=== PATIENT | male | born 1970 | race Caucasian/White ===

== ENCOUNTER 2024-10-14 09:16 | Inpatient (IN) | payer OTHER, SELFPAY ==
[2024-10-14] VITALS (36 sets, daily range): BP systolic 64–150; BP diastolic 46–112; BMI 35.1; BMI 33.9
--- NOTE | 2024-10-14 07:23 | ED.GENMED ---
History of Present Illness
<Danae Morillo PA-C - Last Filed: 10/14/24 09:15>
General
Chief Complaint: Cardiac Symptoms
Source: patient
Time Seen by Provider: 10/14/24 07:23
History of Present Illness
History of Present Illness:
54yoM with a history of atrial fibrillation on Pradaxa, hypertension, hyperlipidemia, and CHF presenting for evaluation of palpitations. Patient woke up this morning around 6:15am and noticed that his heart was racing and he felt short of breath.
He checked his heart rate which was elevated in the 170s. He reports lightheadedness but denies any syncope. He had chest pain earlier but denies any chest pain currently. He also noticed that his ankles were swollen this morning. Of note,
patient has been feeling 'off' and 'not himself' for the past 4 to 5 days. He believes that he may have been in A-fib at that time but his cardiac symptoms did not start until this morning. Patient was admitted in 2021 for atrial fibrillation with
RVR and CHF exacerbation. He underwent failed cardioversion x2 in the ED at that time. He reports compliance with his medications. His principal consultant is Dr. Medel.
Past History
<Judith Caraballo MD - Last Filed: >
Past History
ED Past Medical History: Arrthythmia (Atrial fib), HTN, Hypercholesterolemia and Other (IBS)
ED Past Surgical History: Other (Left wrist surgery and Right shoulder )
Social History
Tobacco: Former smoker
Alcohol: Occasional
Drug: None
Personal:
Living: with family
Employment: Employed
Family History
Family History: Other (Not much contact with his father history not known)
Phy Exam
<Danae Morillo PA-C - Last Filed: 10/14/24 09:15>
Physical Exam
Physical Exam:
Appears uncomfortable, non-toxic
General Physical Exam
General Presentation: mild distress
General Skin: warm and dry
General Habitus: normal
General Mental: alert
Cardiovascular Exam
Cardiovascular Exam: irregularly irregular, tachycardia and other (2+ pitting edema in bilateral lower extremities)
Pulmonary Exam
Pulmonary Exam: lungs clear, no respiratory distress, no rales, no crackles, no rhonchi and no wheezing
Neurological Exam
Neurological Exam: alert
Jamee Coma Scale
Eye Opening: Spontaneous
Verbal Response: Oriented
Motor Response: Obeys Commands
GCS Total Score: 15
Skin Exam
Skin Exam: normal color and warm/dry
Psychiatric Exam
Psychiatric Exam: normal mood/affect
<Reyes Elizondo DO - Last Filed: 10/14/24 08:30>
Jamee Coma Scale
GCS Total Score: 15
Course
<Danae Morillo PA-C - Last Filed: 10/14/24 09:15>
Orders/Labs/Results
Orders:
Orders
10/14/24 07:15
EKG [Electrocardiogram (*1)] Stat
Reason for Study: Palpitations
10/14/24 07:16
EKG- Treatment ONCE
10/14/24 07:32
Cardiac Monitoring- Treatment ONCE
10/14/24 07:39
Complete Blood Count/With Diff Urgent
Comprehensive Metabolic Panel Urgent
Magnesium Urgent
NT-proBNP Urgent
TSH Reflex To Free T4 Urgent
Troponin I Urgent
10/14/24 07:41
Propofol [Diprivan] 20 ml .ROUTE .STK-MED
10/14/24 08:05
Diltiazem 125 mg/125 ml Nss [Cardizem] 125 mg in 125 ml .ROUTE .STK-MED
10/14/24 08:06
Diltiazem HCl [Cardizem] 25 mg .ROUTE .STK-MED ONE
Diltiazem HCl [Cardizem] 25 mg IV NOW STA
Furosemide [Lasix] 60 mg IV NOW STA
10/14/24 08:15
Diltiazem 125 mg/125 ml Nss [Cardizem] 125 mg in 125 ml IV PER PROTOCOL
Initial dose in mg/hr, then titrate:: 5
Titrate to keep:: Heart rate 80-100 bpm
Titrate by mg/hr:: 5 mg/hr
Frequency of titrations (minutes):: 15
Maximum dose in mg/hr:: 15
10/14/24 08:16
Magnesium Sulfate 2 Gram/50 ml [Magnesium Sulfate] 2 gram in 50 ml IV NOW
Potassium Chloride [KCl] 40 meq PO NOW STA
10/14/24 08:17
CR Chest Portable - 1 View Urgent
Comment:
Reason For Exam: SOB, leg swelling
Reason Study Needs to be Portable: Unable to Transport
10/14/24 08:21
Potassium Chloride [KCl] 20 meq 0.9% Sodium Chloride 250 ml [Nss] 250 ml IV NOW
10/14/24 08:30
CARDIOLOGY CONSULT Routine
Consulting Provider: Joao Buenrostro
Was physician already notified: Yes
10/14/24 09:05
Admit/Transfer Patient As Directed
Co-Sign Provider:
Level of Care: Inpatient admission
Assign to:: IVU
Physician / Group: Roc/hospitalist
Diagnosis: A fib, CHF
Reason for Hospitalization: A fib, CHF
Expected length of stay greater than two midnights?: Yes
ELOS- Estimated Length of Stay in days: 3
I certify the patient meets the requirements for IP care: Yes
PRN Pain Medication Management As Directed
May give lesser potent ordered pain med per pt: Yes
preference::
Protocol:: Medication orders for pain may be administered in a
manner that supports deferring to patient preference
when the pt is:
- Requesting an ordered lesser potent pain medication.
Least to most potent pain medications are defined
as: acetaminophen < NSAID < tramadol < opioids
(morphine, oxycodone, hydromorphone).
- Requesting a lesser dose of the same medication IF
ORDERED.
- Requesting a less intrusive route of administration
if both routes are prescribed by the provider (PO <
IV).
10/14/24 09:06
Code Status As Directed
Resuscitation Status: Full Code
10/14/24 09:09
COVID-19 Antigen Routine
Source: Nasal Swab
Urine Drug Abuse Screen Routine
Influenza A+B Rapid Molecular Routine
ASIF Source: Nasal Swab
Specimen Description:
10/14/24 09:30
Magnesium Sulfate 2 Gram/50 ml [Magnesium Sulfate] 2 gram in 50 ml IV ONCE
Abnormal Lab Results
10/14/24
07:39
RBC 4.53 L 10^6/uL
(4.70-6.10)
MCH 31.8 H pg
(27.0-31.0)
Neutrophils % 38.8 L %
(42.2-75.2)
Potassium 3.1 L mmol/L
(3.5-5.1)
BUN 4 L mg/dl
(9-20)
Magnesium 1.1 L mg/dl
(1.6-2.3)
Total Protein 6.0 L g/dl
(6.3-8.2)
10/14/24 07:39
10/14/24 07:39
Vital Signs
Initial and Last Documented VS:
Initial Vital Signs
Temp Pulse Resp BP Pulse Ox
98.2 F 124 20 120/86 100
10/14/24 07:16 10/14/24 07:16 10/14/24 07:16 10/14/24 07:16 10/14/24 07:16
Last Documented Vital Signs
Temp Pulse Resp BP Pulse Ox
98 F 111 16 113/70 97
10/14/24 08:37 10/14/24 09:00 10/14/24 09:04 10/14/24 09:00 10/14/24 09:00
<Reyes Elizondo DO - Last Filed: 10/14/24 08:30>
Orders/Labs/Results
Orders:
Orders
10/14/24 07:15
EKG [Electrocardiogram (*1)] Stat
Reason for Study: Palpitations
10/14/24 07:16
EKG- Treatment ONCE
10/14/24 07:32
Cardiac Monitoring- Treatment ONCE
10/14/24 07:39
Complete Blood Count/With Diff Urgent
Comprehensive Metabolic Panel Urgent
Magnesium Urgent
NT-proBNP Urgent
TSH Reflex To Free T4 Urgent
Troponin I Urgent
10/14/24 07:41
Propofol [Diprivan] 20 ml .ROUTE .STK-MED
10/14/24 08:05
Diltiazem 125 mg/125 ml Nss [Cardizem] 125 mg in 125 ml .ROUTE .STK-MED
10/14/24 08:06
Diltiazem HCl [Cardizem] 25 mg .ROUTE .STK-MED ONE
Diltiazem HCl [Cardizem] 25 mg IV NOW STA
Furosemide [Lasix] 60 mg IV NOW STA
10/14/24 08:15
Diltiazem 125 mg/125 ml Nss [Cardizem] 125 mg in 125 ml IV PER PROTOCOL
Initial dose in mg/hr, then titrate:: 5
Titrate to keep:: Heart rate 80-100 bpm
Titrate by mg/hr:: 5 mg/hr
Frequency of titrations (minutes):: 15
Maximum dose in mg/hr:: 15
10/14/24 08:16
Magnesium Sulfate 2 Gram/50 ml [Magnesium Sulfate] 2 gram in 50 ml IV NOW
Potassium Chloride [KCl] 40 meq PO NOW STA
10/14/24 08:17
CR Chest Portable - 1 View Urgent
Comment:
Reason For Exam: SOB, leg swelling
Reason Study Needs to be Portable: Unable to Transport
10/14/24 08:21
Potassium Chloride [KCl] 20 meq 0.9% Sodium Chloride 250 ml [Nss] 250 ml IV NOW
10/14/24 08:30
CARDIOLOGY CONSULT Routine
Consulting Provider: Joao Buenrostro
Was physician already notified: Yes
10/14/24 09:05
Admit/Transfer Patient As Directed
Co-Sign Provider:
Level of Care: Inpatient admission
Assign to:: IVU
Physician / Group: Roc/hospitalist
Diagnosis: A fib, CHF
Reason for Hospitalization: A fib, CHF
Expected length of stay greater than two midnights?: Yes
ELOS- Estimated Length of Stay in days: 3
I certify the patient meets the requirements for IP care: Yes
PRN Pain Medication Management As Directed
May give lesser potent ordered pain med per pt: Yes
preference::
Protocol:: Medication orders for pain may be administered in a
manner that supports deferring to patient preference
when the pt is:
- Requesting an ordered lesser potent pain medication.
Least to most potent pain medications are defined
as: acetaminophen < NSAID < tramadol < opioids
(morphine, oxycodone, hydromorphone).
- Requesting a lesser dose of the same medication IF
ORDERED.
- Requesting a less intrusive route of administration
if both routes are prescribed by the provider (PO <
IV).
10/14/24 09:06
Code Status As Directed
Resuscitation Status: Full Code
10/14/24 09:09
COVID-19 Antigen Routine
Source: Nasal Swab
Urine Drug Abuse Screen Routine
Influenza A+B Rapid Molecular Routine
ASIF Source: Nasal Swab
Specimen Description:
10/14/24 09:30
Magnesium Sulfate 2 Gram/50 ml [Magnesium Sulfate] 2 gram in 50 ml IV ONCE
Abnormal Lab Results
10/14/24
07:39
RBC 4.53 L 10^6/uL
(4.70-6.10)
MCH 31.8 H pg
(27.0-31.0)
Neutrophils % 38.8 L %
(42.2-75.2)
Potassium 3.1 L mmol/L
(3.5-5.1)
BUN 4 L mg/dl
(9-20)
Magnesium 1.1 L mg/dl
(1.6-2.3)
Total Protein 6.0 L g/dl
(6.3-8.2)
10/14/24 07:39
10/14/24 07:39
Vital Signs
Initial and Last Documented VS:
Initial Vital Signs
Temp Pulse Resp BP Pulse Ox
98.2 F 124 20 120/86 100
10/14/24 07:16 10/14/24 07:16 10/14/24 07:16 10/14/24 07:16 10/14/24 07:16
Last Documented Vital Signs
Temp Pulse Resp BP Pulse Ox
98 F 111 16 113/70 97
10/14/24 08:37 10/14/24 09:00 10/14/24 09:04 10/14/24 09:00 10/14/24 09:00
<Judith Caraballo MD - Last Filed: >
Orders/Labs/Results
Orders:
Orders
10/14/24 07:15
EKG [Electrocardiogram (*1)] Stat
Reason for Study: Palpitations
10/14/24 07:16
EKG- Treatment ONCE
10/14/24 07:32
Cardiac Monitoring- Treatment ONCE
10/14/24 07:39
Complete Blood Count/With Diff Urgent
Comprehensive Metabolic Panel Urgent
Magnesium Urgent
NT-proBNP Urgent
TSH Reflex To Free T4 Urgent
Troponin I Urgent
10/14/24 07:41
Propofol [Diprivan] 20 ml .ROUTE .STK-MED
10/14/24 08:05
Diltiazem 125 mg/125 ml Nss [Cardizem] 125 mg in 125 ml .ROUTE .STK-MED
10/14/24 08:06
Diltiazem HCl [Cardizem] 25 mg .ROUTE .STK-MED ONE
Diltiazem HCl [Cardizem] 25 mg IV NOW STA
Furosemide [Lasix] 60 mg IV NOW STA
10/14/24 08:15
Diltiazem 125 mg/125 ml Nss [Cardizem] 125 mg in 125 ml IV PER PROTOCOL
Initial dose in mg/hr, then titrate:: 5
Titrate to keep:: Heart rate 80-100 bpm
Titrate by mg/hr:: 5 mg/hr
Frequency of titrations (minutes):: 15
Maximum dose in mg/hr:: 15
10/14/24 08:16
Magnesium Sulfate 2 Gram/50 ml [Magnesium Sulfate] 2 gram in 50 ml IV NOW
Potassium Chloride [KCl] 40 meq PO NOW STA
10/14/24 08:17
CR Chest Portable - 1 View Urgent
Comment:
Reason For Exam: SOB, leg swelling
Reason Study Needs to be Portable: Unable to Transport
10/14/24 08:21
Potassium Chloride [KCl] 20 meq 0.9% Sodium Chloride 250 ml [Nss] 250 ml IV NOW
10/14/24 08:30
CARDIOLOGY CONSULT Routine
Consulting Provider: Joao Buenrostro
Was physician already notified: Yes
10/14/24 09:05
Admit/Transfer Patient As Directed
Co-Sign Provider:
Level of Care: Inpatient admission
Assign to:: IVU
Physician / Group: Roc/hospitalist
Diagnosis: A fib, CHF
Reason for Hospitalization: A fib, CHF
Expected length of stay greater than two midnights?: Yes
ELOS- Estimated Length of Stay in days: 3
I certify the patient meets the requirements for IP care: Yes
PRN Pain Medication Management As Directed
May give lesser potent ordered pain med per pt: Yes
preference::
Protocol:: Medication orders for pain may be administered in a
manner that supports deferring to patient preference
when the pt is:
- Requesting an ordered lesser potent pain medication.
Least to most potent pain medications are defined
as: acetaminophen < NSAID < tramadol < opioids
(morphine, oxycodone, hydromorphone).
- Requesting a lesser dose of the same medication IF
ORDERED.
- Requesting a less intrusive route of administration
if both routes are prescribed by the provider (PO <
IV).
10/14/24 09:06
Code Status As Directed
Resuscitation Status: Full Code
10/14/24 09:09
COVID-19 Antigen Routine
Source: Nasal Swab
Urine Drug Abuse Screen Routine
Influenza A+B Rapid Molecular Routine
ASIF Source: Nasal Swab
Specimen Description:
10/14/24 09:30
Magnesium Sulfate 2 Gram/50 ml [Magnesium Sulfate] 2 gram in 50 ml IV ONCE
Abnormal Lab Results
10/14/24
07:39
RBC 4.53 L 10^6/uL
(4.70-6.10)
MCH 31.8 H pg
(27.0-31.0)
Neutrophils % 38.8 L %
(42.2-75.2)
Potassium 3.1 L mmol/L
(3.5-5.1)
BUN 4 L mg/dl
(9-20)
Magnesium 1.1 L mg/dl
(1.6-2.3)
Total Protein 6.0 L g/dl
(6.3-8.2)
10/14/24 07:39
10/14/24 07:39
Vital Signs
Initial and Last Documented VS:
Initial Vital Signs
Temp Pulse Resp BP Pulse Ox
98.2 F 124 20 120/86 100
10/14/24 07:16 10/14/24 07:16 10/14/24 07:16 10/14/24 07:16 10/14/24 07:16
Last Documented Vital Signs
Temp Pulse Resp BP Pulse Ox
98 F 111 16 113/70 97
10/14/24 08:37 10/14/24 09:00 10/14/24 09:04 10/14/24 09:00 10/14/24 09:00
Procedures
<Reyes Elizondo, DO - Last Filed: 10/14/24 08:30>
Cardioversion
Indication:: Afib
Performed by:: blake
Synchronized?: Yes
Energy Used: Other (200, 300, 360)
Number of attempts: 3
Successful?: No
Complications: none
ASA Risk Score: Class II
Any reaction or bad outcome to prior sedation/anesthesia?: No history of a reaction
Sedation level to be attained: deep
Chart and allergies reviewed: Yes
Patient reassessed prior to sedation: Yes
Time out completed at (validating right patient & procedure): 07:57
History of difficult intubation: No
Airway free of obstruction: Yes
Patient has a gag reflex: Yes
Patient is able to open mouth: Yes
Patient has no dentures: Yes
Patient has no loose teeth: Yes
Medication administered by Provider during Moderate Sedation: IV Propofol (mg)
Total dose administered: 170
Time drug administered: 07:57
Start Time: 07:57
Stop Time: 08:07
<Danae Morillo PA-C - Last Filed: 10/14/24 09:15>
MDM/Problems Addressed
Differential Diagnosis Includes:
54yoM here with palpitations and SOB that began this morning. Has been feeling unwell for the past several days. HR in the 170s at home. Hx of afib on Pradaxa. HR 124 on arrival. BP stable. Remainder of vitals stable. He appears uncomfortable but is
non-toxic. Pitting edema in bilateral lower extremities present on exam. Differential diagnosis includes but is not limited to: afib with RVR, CHF exacerbation, electrolyte abnormality
Initial ED plan: EKG confirms afib with RVR with nonspecific ST changes. Check cardiac labs, TSH, magnesium, and CXR. Will attempt synchronized cardioversion.
<Danae Morillo PA-C - Last Filed: 10/14/24 09:15>
*EKG
Interpreted by ED Provider?: Yes
EKG Intrepretation Date: 10/14/24
Heart Rate: 145
Rate: tachycardiac
Rhythm: a-fib
[place]: normal axis
Interval: normal interval
QRS Pattern: normal QRS
Ischemia: non-specific ST changes
*Critical Care Note
Total Time (30-74mins, 75-104mins- exclusive of procedures): 35
<Danae Morillo PA-C - Last Filed: 10/14/24 09:15>
Update Note
Update Note:
Synchronized cardioversion attempted x 3 without success. Patient was given IV Cardizem bolus and started on an infusion. Dose of IV Lasix also ordered. Labs reveal a potassium of 3.1 and a magnesium of 1.1 which were replaced. Patient admitted
for further evaluation and management.
ED Attending Note
<Reyes Elizondo DO - Last Filed: 10/14/24 08:30>
ED Attending Note
Patient seen and examined by attending physician: Yes
I performed the substantive portion of visit, reviewed & personally made and approve the management plan that is documented in note by myself or PAULINA.: Yes
ED Attending Note:
Patient is a 54-year-old male with a history of atrial fibrillation who presents to the emergency department complaining of palpitations, lightheadedness, shortness of breath and peripheral edema. Patient states his legs were fine yesterday and
today he feels as though they are swollen top to bottom. Patient has a history of atrial fibrillation and on his last admission was also found to be in CHF. Patient's pulse ox is 100% and spite of feeling short of breath. Patient has not felt
well the last few days. Patient has been compliant with his medications including his Pradaxa. Patient denies fever or chills. Patient has had some dry heaves but no actual vomiting. Patient denies any diarrhea. Patient denies any recent
injuries or illnesses. On physical exam patient does appear to be in somewhat moderate distress. Neck is supple without neck vein distention. Heart is irregularly irregular and tachycardic. Lungs are coarse with diminished breath sounds.
Abdomen soft nontender. Patient has pitting edema to just above his knees bilaterally. EKG shows atrial fibrillation with RVR and nonspecific ST-T wave changes. Will try to cardiovert the patient into sinus rhythm in hopes that this will help
resolve his CHF. We have the atrial fibrillation has precipitated the CHF. Anticipate the patient probably being admitted.
<Judith Caraballo MD - Last Filed: >
-
Portions of this chart may have been created with voice recognition software.� Occasional wrong word or��sound alike� substitutions may have occurred due to the inherent limitations of voice recognition software.
Discharge Plan
Departure
Patient Disposition: Admit
Date of Disposition: 10/14/24
Time of Disposition: 08:25
Presentation/result/management discussed w/ accepting MD/DO: Hospitalist
Discharge Problem:
Atrial fibrillation with RVR, Hypomagnesemia, Hypokalemia
Prescriptions:
No Action
omega-3 acid ethyl esters [Lovaza] 1 GM capsule
2 cap PO BID
atorvastatin 40 mg Tablet
40 mg PO HS
hydrocortisone acetate 25 mg Suppository
25 mg HI HS Qty: 30 0RF
colchicine 0.6 mg Tablet
0.6 mg PO DAILY Qty: 10 0RF
Rx Instructions:
Continue taking until 48 hours post gout flare.
Eliquis 5 mg Tablet
5 mg PO BID Qty: 60 0RF
potassium chloride [Klor-Con M20] 20 mEq Tablet,Er Particles/Crystals
20 meq PO DAILY Qty: 30 0RF
pantoprazole 40 mg Tablet,Delayed Release (Dr/Ec)
40 mg PO DAILY Qty: 30 0RF
furosemide 20 mg Tablet
20 mg PO DAILY Qty: 30 0RF
metoprolol succinate 50 mg Tablet Extended Release 24 Hr
50 mg PO DAILY Qty: 30 0RF
cyanocobalamin (vitamin B-12) 1,000 mcg Tablet
1,000 mcg PO DAILY Qty: 30 0RF
Interventions
Interventions:
*Risk Screen - Suicide Last Done: 10/14/24 07:16
*General Assessment Last Done: 10/14/24 07:30
*Neglect/Abuse Screening Last Done: 10/14/24 07:16
ED- Fall Risk Assessment Last Done: 10/14/24 07:30
*ED COVID-19 Vaccine History Last Done: 10/14/24 07:30
ED- Pulmonary Assessment Last Done: 10/14/24 07:28
ED- Cardiac Assessment Last Done: 10/14/24 07:28
Discharge Date and Time
Print Language: MONGOLIAN
[2024-10-14 08:08] LABS: % Basophils 1.2 % (0-2); % Immature Granulocytes 0.2 % (0-0.5); % Lymphocytes 48.8 % (20.5-51.1); % Neutrophils 38.8 % (42.2-75.2); Absolute Basophils 0.1 10^3/uL (0-0.2); Absolute Eosinophils 0.1 10^3/uL (0-0.7); Absolute Lymphocytes 2.4 10^3/uL (1.2-3.4); Absolute Monocytes 0.5 10^3/uL (0.1-0.6); Absolute Neutrophils 1.9 10^3/uL (1.4-6.5); Hematocrit 39.3 % (39.0-52.0); Hemoglobin 14.4 g/dL (13.0-18.0); Mean Corp Hgb Conc. 36.6 g/dL (33.0-37.0); Mean Corpuscular Hgb 31.8 pg (27.0-31.0); Mean Corpuscular Volume 86.8 fL (80.0-94.0); Mean Platelet Volume 9.4 fL (7.4-10.4); Nucleated Red Blood Cells % 0 % (-); Platelet Count 179 10^3/uL (130-400); Red Blood Cell Count 4.53 10^6/uL (4.70-6.10); Red Cell Dist. Width 12.3 % (11.5-14.5)
[2024-10-14] MEDS: LASIX 60 MG IV (08:11)
[2024-10-14 08:13] LABS: ALT (SGPT) 24 U/L (0-50); AST (SGOT) 35 U/L (17-59); Alkaline Phosphatase 65 U/L (38-126); Blood Urea Nitrogen 4 mg/dl (9-20); Calcium 8.5 mg/dl (8.4-10.2); Carbon Dioxide 22 mmol/L (22-30); Chloride 103 mmol/L (98-107); Estimated Creatinine Clearance > 125 ml/min; Glucose 98 mg/dl (70-99); Magnesium 1.1 mg/dl (1.6-2.3); Potassium 3.1 mmol/L (3.5-5.1); Sodium 140 mmol/L (135-145); Total Bilirubin 0.8 mg/dl (0.2-1.3); eGFR > 60.00
[2024-10-14] MEDS: CARDIZEM 25 MG IV (08:13)
[2024-10-14 08:19] LABS: NT-proBNP 88.4 pg/ml; Troponin I < 0.012 ng/ml
[2024-10-14] MEDS: CARDIZEM 125 IV (08:21)
[2024-10-14] MEDS: MAGNESIUM SULFATE 50 IV ×2 (08:30→09:21)
[2024-10-14] MEDS: KCL 40 MEQ PO (08:33)
[2024-10-14 08:48] LABS: TSH Reflex To Free T4 2.97 uIU/ml (0.47-4.68)
--- NOTE | 2024-10-14 08:58 | HPS.HSE ---
Family Physician
-
Family Physician: Reyes Ocampo
Chief Complaint
-
palpitation, SOB
History of Present Illness
HPI: 54 yo M with PMH atrial fibrillation on Pradaxa, hypertension, hyperlipidemia, CHF, IBS-D; p/w palpitations ad SOB that started on the DOA.
He also reported lightheadedness but denies any syncope etc. He c/o painful LE due to worsening swelling. He stated that he has felt sluggish for several days.
In the ED, he had cardioversion x3 which failed. He was started with Cardizem drip.
His family mediator is Dr. Medel.
Medical History
Past Medical History
Past Medical History: Reports Arrhythmia (A. fib), HTN, Hypercholesterolemia and Other (BPH, IBS, former smoker 30-year 1 pack/day quit 8 years ago per pt)
Past Surgical History: Reports Orthopedic (Left wrist surgery, right shoulder surgery)
Social History
Tobacco: Former Smoker (30-year 1 pack/day quit 8 years ago)
Alcohol: Occasional
Drug: None
Personal:
Living: With Family ( at bedside)
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
Family History
Family History: Not pertinent
Allergies / Home Medications
Allergies reflects when Allergies were last updated in [employer].
Home Medications with original date entered in [employer]
Allergy/Medication List:
Medications on admission are unable to be verified or confirmed at this time.
Review of Systems
-
Respiratory: Reports Trouble Breathing
Cardiac: Reports Palpitations
Physical Exam
Vital Signs
Vital Signs
Temp Pulse Resp BP Pulse Ox
36.6 C 82 16 117/77 100
10/14/24 08:37 10/14/24 08:37 10/14/24 08:37 10/14/24 08:37 10/14/24 08:37
Physical Exam
General: Well Developed, Well Nourished, Comfortable, Conversant and Obese
HEENT: NormoCephalic, Moist mucous membranes and Atraumatic
Respiratory: Clear and Non Labored Respirations; No Accessory Resp Muscle Use
Cardiac: S1/S2, Irregular Rhythm and Tachycardia; No Murmur or Rub
GI: Soft, Non Tender, Non Distended and Normal Bowel Sounds; No Organomegaly
Rectal: Deferred by Provider
Musculoskeletal: No Clubbing, No Cyanosis, Edema, Left Lower Extremity, Edema, Right Lower Extremity and No Edema
Skin: No Rash
Neuro: Awake and Alert
Psych: Calm and Intact Judgment/Insight
Laboratory Results
-
10/14/24 07:39
10/14/24 07:39
Laboratory Results
Total Bilirubin 0.8 mg/dl (0.2-1.3) 10/14/24 07:39
AST 35 U/L (17-59) 10/14/24 07:39
ALT 24 U/L (0-50) 10/14/24 07:39
Alkaline Phosphatase 65 U/L (38-126) 10/14/24 07:39
Troponin I < 0.012 ng/ml 10/14/24 07:39
Data Reviewed
-
Diagnostic Radiology: Image Personally Visualized and interpreted
Lab Data: Labs Reviewed by me
Impression/Plan
-
HPI: 54 yo M with PMH atrial fibrillation on Pradaxa, hypertension, hyperlipidemia, CHF, IBS-D; p/w palpitations ad SOB that started on the DOA.
He also reported lightheadedness but denies any syncope etc. He c/o painful LE due to worsening swelling. He stated that he has felt sluggish for several days.
In the ED, he had cardioversion x3 which failed. He was started with Cardizem drip.
His family mediator is Dr. Medel.
A/P:
# A fib RVR
?unclear cause for A fib palpitation, check COVID/Flu, UDS
TSH WNL at 2.97
failed cardioversion in ED
Started Cardizem drip, cont
Continue BREAKFAST ATTENDANT Toprol
Continue BREAKFAST ATTENDANT Pradaxa (intolerant to Eliquis)
Check echo
Cardiology consult
# Acute CHF suspect 2/2 A fib RVR
IV lasix 40 daily, daily weight and I/O
Check echo as above
# Hypokalemia
# Hypomagnesemia
replete lytes
# HTN
Cardizem gtt
BREAKFAST ATTENDANT Toprol
# HLD
Continue atorvastatin 40 mg daily
# IBS hx- predominant diarrhea
# BPH
No medication reported
# h/o gout
DVT prophylaxis: BREAKFAST ATTENDANT Pradaxa
FC
--- NOTE | 2024-10-14 09:41 | CON.CAR ---
Addendum entered and electronically signed by Joao Buenrostro MD 10/14/24 10:17:
I saw and examined the patient.
The MANAGER PHOTOGRAPHY's note was reviewed and I agree with the note.
Comment: 54 yo male with paroxysmal Afib on Pradaxa, HFpEF, HTN, obesity (on Zepbound), HLD, SYEDA on CPAP, IBS-D, GERD, and anemia (hemorrhoidal bleeding on Xarelto), who presents to the ER with c/o palpitations. He woke early this am and
immediately felt palpitations, SOB and fatigue. He was confirmed in AF and now s/p unsuccessful DCCV.
- dilt gtt
- IV lasix x1 not convinced this is necessarily HF given only swollen legs L>R
- LE Edema L>R, r/o DVT?
- likely needs ablation will obtain outpatient f/u
Original Note:
Consultation
Consultation Request
Date/Time Consultation Requested: 10/14/24 8:45a
Date/Time Consultation Performed: 10/14/24 9a
Requesting Provider: Danae Morillo PA-C
Performing Provider: SAMMY Beasley for Dr. Buenrostro
Reason for Consultation: rapid Afib
Medical History
-
Chief Complaint: palpitations
History of Present Illness:
Mr. Wolf is a 54 yo male with paroxysmal Afib on Pradaxa, HFpEF, HTN, obesity (on Zepbound), HLD, SYEDA on CPAP, IBS-D, GERD, and anemia (hemorrhoidal bleeding on Xarelto), who presents to the ER with c/o palpitations. He woke early this am and
immediately felt palpitations, SOB and fatigue. He checked his Kardia mobile and it showed Afib at 177bpm. He was given IV Cardizem bolus and drip, attempted cardioversion x 3 without success. He admits to not feeling well this past Friday with
fatigue, Kardia mobile at home showed ST 110s then NSR. He is admitted to the hospitalist service and we are consulted for rapid Afib. He reports compliance with Pradaxa w/o missed doses and no abnormal bleeding. His b/l LE were swollen this am
and not yesterday. Potassium was 3.1 and magnesium 1.1, both repleted in the ER.
Past Medical History
Past Medical History: Other (as above)
Past Surgical History: Orthopedic (right wrist surgery)
Social History
Tobacco: Former Smoker
Alcohol: Occasional
Personal:
Living: With Family
Family History
Family History: Reviewed & Not Pertinent
Allergies / Home Medications
Allergy/AdvReac Type Severity Reaction Status Date / Time
Penicillins Allergy Rash Verified 10/14/24 07:16
�Medication �Instructions �Recorded �Confirmed �Type
omega-3 acid ethyl esters 1 gram 2 g PO BID Supplement 01/28/21 10/14/24 History
capsule (Lovaza)
atorvastatin 40 mg tablet 40 mg PO HS High cholesterol 06/07/22 10/14/24 History
metoprolol succinate 50 mg 50 mg PO DAILY #30 tabs 08/11/22 10/14/24 Rx
tablet,extended release 24 hr
acetaminophen 325 mg tablet 650 mg PO Q4H PRN mild pain 10/14/24 10/14/24 History
dabigatran etexilate 150 mg capsule 150 mg PO BID 10/14/24 10/14/24 History
garlic 1 cap PO DAILY 10/14/24 10/14/24 History
losartan 50 mg tablet 50 mg PO DAILY 10/14/24 10/14/24 History
potassium 99 mg tablet 99 mg PO DAILY 10/14/24 10/14/24 History
tadalafil 5 mg tablet 5 mg PO DAILY 10/14/24 10/14/24 History
tirzepatide (weight loss) 2.5 2.5 mg SC SA@1900 10/14/24 10/14/24 History
mg/0.5 mL subcutaneous pen
injector (Zepbound)
Review of Systems
-
History Source: Patient
All other systems: Negative unless noted
Physical Exam
Vital Signs
Temp Pulse Resp BP Pulse Ox
98 F 111 16 113/70 97
10/14/24 08:37 10/14/24 09:00 10/14/24 09:04 10/14/24 09:00 10/14/24 09:00
Lab Results
10/14/24 07:39
10/14/24 07:39
Troponin I < 0.012 ng/ml 10/14/24 07:39
Bvb-H-Ejiyqcjarzb Pept 88.4 pg/ml 10/14/24 07:39
Physical Exam
General: Well Developed, Well Nourished and No Apparent Distress
HEENT: Normocephalic, Anicteric and Moist Mucous Membranes
Respiratory: Clear and Non Labored Respirations
Cardiac: S1/S2, Irregular Rhythm (tachycardia) and Peripheral Edema (b/l LE L>R)
Breast: Deferred by me
GI: Soft, Non Distended and Normal Bowel Sounds
Rectal: Deferred by Provider
Genito-urinary: No Costovertebral Tender
Musculoskeletal: No Clubbing and No Cyanosis
Skin: Warm and Dry
Neuro: AO x 3
Hematologic/Lymphatic: No Lymphadenopathy
Psych: Calm
Impression / Plan
-
Afib - recurrent, rapid ventricular response.
- symptomatic.
- IV Cardizem bolus and drip currently.
- attempted cardioversion x 3 without success in the ER.
- continue Pradaxa.
- consider PVI.
- check echo.
HFpEF - history of when anemic and had rapid Afib.
- LE edema noted.
- given IV Lasix in the ER, continue and monitor.
- not on standing diuretics at home.
- check echo.
HTN - stable on outpatient meds.
- monitor closely while on IV Cardizem drip.
HLD - stable on Lipitor, continue.
Hypokalemia - replete and monitor.
Obesity - he is on Zepbound since July 2024, per PCP.
Data Reviewed
-
EKG: Tracing Personally Visualized and interpreted (Afib 145 bpm)
Radiology: Report Reviewed by me (CXR: NAD)
Medical Tests (Nuc Med, Echo etc): Report Reviewed by me (echo 08/2022: normal biventricular size and function, no RWMA, no valve disease. )
Labs: Labs Reviewed by me
Old Records: Reviewed
[2024-10-14 09:48] LABS: COVID-19 Antigen Invalid (Negative)
[2024-10-14] MEDS: ZOFRAN 4 MG PO (10:11)
[2024-10-14 10:37] LABS: Amphetamines Negative (Negative); Barbiturates Negative (Negative); Benzodiazepines Negative (Negative); Buprenorphine Negative (Negative); Cocaine Negative (Negative); Marijuana Negative (Negative); Methadone Negative (Negative); Methamphetamines Negative (Negative); Opiates Negative (Negative); Phencyclidine Negative (Negative); Tricyclic Antidepressants Negative (Negative)
[2024-10-14 10:39] LABS: COVID-19 Antigen Negative (Negative)
--- NOTE | 2024-10-14 11:37 | CM ---
Chart reviewed. Patient is independent of ADLS, lives with his in a 2 [address], 9-10 LISA, 0 DME. Plan is for the patient to return home. CM to follow
[2024-10-14] MEDS: PRADAXA 150 MG PO ×2 (12:53→19:45)
[2024-10-14] MEDS: CORDARONE 103 MG IV (16:43)
--- NOTE | 2024-10-14 19:15 | PTCARENOTE ---
Pt with very symptomatic atrial fib at a rate @120-140 received from ED on cardizem infusion at 15mg/hr. Pt very aware of each heart beat and stated he felt 'terrible'. Pt stated also that he woke up today with bilateral leg edema, diuresing after
lasix. Cardizem reduced to 10mg for SBP in 90's at 13:20. Pt went for a peripheral U/S and echo. At @16:00 SBP's 64-80, heart rate @140's. Cardizem infusion turned off, notified and came to see pt, pt given saline bolus of 500mls and
BP's improved. At 16:24 pt converted to sinus rhythm confirmed by ECG. Per pt given IV amiodarone bolus only with orders to start infusion if he goes back into atrial bib tonight. Currently pt remains in sinus rhythm 90-110. Plan to
keep pt NPO after mn for CV if needed and to discuss ablation.
[2024-10-14] MEDS: LIPITOR 40 MG PO (22:47)
--- NOTE | 2024-10-14 23:53 | PTCARENOTE ---
Rec'd pt at tran of shift. Pt on TELE monitor in NSR (HR in 90's), VSS, and AAO*3. Pt denied any pain or discomfort and agreeable to plan of care. Pt agreed to report any new pain or palpitations. Pt resting with call palencia in reach.
[2024-10-15] VITALS (10 sets, daily range): BP systolic 114–135; BP diastolic 65–82; BMI 33.8
[2024-10-15 03:36] LABS: Hematocrit 36.9 % (39.0-52.0); Hemoglobin 13.4 g/dL (13.0-18.0); Mean Corp Hgb Conc. 36.3 g/dL (33.0-37.0); Mean Corpuscular Hgb 31.2 pg (27.0-31.0); Mean Corpuscular Volume 85.8 fL (80.0-94.0); Mean Platelet Volume 9.9 fL (7.4-10.4); Platelet Count 161 10^3/uL (130-400); Red Cell Dist. Width 12.9 % (11.5-14.5); White Blood Cell Count 6.6 10^3/uL (4.8-10.8)
[2024-10-15 03:49] LABS: Blood Urea Nitrogen 6 mg/dl (9-20); Calcium 8.4 mg/dl (8.4-10.2); Carbon Dioxide 20 mmol/L (22-30); Chloride 102 mmol/L (98-107); Estimated Creatinine Clearance > 125 ml/min; Glucose 103 mg/dl (70-99); Magnesium 1.7 mg/dl (1.6-2.3); Potassium 3.5 mmol/L (3.5-5.1); Sodium 136 mmol/L (135-145); eGFR > 60.00
--- NOTE | 2024-10-15 07:11 | PTCARENOTE ---
Addendum entered by Eleno Garcia RN 10/15/24 07:19:
At 0700 pt used call palencia and reported sharp intermittent chest pain rating pain at a 6/10 describing pain as sharp and in middle of chest at sternum. EKG obtained, showing NSR. 2L of O2 applied stating at 96-100%. VSS bp 132/77. Pt reported no
chest pain at 7:07 rating pain at 1/10. Rec'd order for troponin and drawn immediately. Rec'd order for sublingual nitro and at bedside. Pt currently resting in bed chest pain free and agreed to report any pain immediately. SONIA Sam came to
assess patient. Dr Corral aware and requested sublingual nitro and troponins. Plan of care ongoing.
Original Note:
At 0700 pt used call palencia and reported sharp intermittent chest pain rating pain at a 6/10 describing pain as sharp and in middle of chest at sternum. EKG obtained, showing NSR. 2L of O2 applied stating at 96-100%. Pt reported no chest pain at
7:07 rating pain at 1/10. Rec'd order for troponin and drawn immediately. Rec'd order for sublingual nitro and at bedside. Pt currently resting in bed chest pain free and agreed to report any pain immediately. SONIA Sam came to assess patient.
Dr Corral aware and requested sublingual nitro and troponins. Plan of care ongoing.
[2024-10-15 07:33] LABS: Troponin I < 0.012 ng/ml
--- NOTE | 2024-10-15 08:31 | W.PN.HOSP.TC ---
Addendum entered and electronically signed by Marcela Brian MD 10/15/24 15:11:
total DC time 36 min
Original Note:
Today's Communication/Plan
-
see A/P
Assessment / Plan
Assessment / Plan
HPI: 54 yo M with PMH atrial fibrillation on Pradaxa, hypertension, hyperlipidemia, CHF, IBS-D; p/w palpitations ad SOB that started on the DOA.
He also reported lightheadedness but denies any syncope etc. He c/o painful LE due to worsening swelling. He stated that he has felt sluggish for several days.
In the ED, he had cardioversion x3 which failed. He was started with Cardizem drip.
His marketing researcher is Dr. Medel.
A/P:
# A fib RVR
TSH WNL at 2.97
failed cardioversion in ED
Cardizem drip -> IV amiodarone
Off CONTRACT ACCOUNTANT Toprol
Continue CONTRACT ACCOUNTANT Pradaxa (intolerant to Eliquis)
Echo unrevealing: EF 70%. Normal diastolic function. Normal right ventricular size and function. No significant valve abnormalities. No evidence of pulmonary hypertension.
Cardiology on board
UDS neg, COVID/Flu neg
# Suspect Acute CHF 2/2 A fib RVR
s/p IV lasix 40 x1, observe off further lasix per card
BL LE edema has improved
# Hypokalemia
# Hypomagnesemia
replete lytes
# HTN
Currently stable off meds
# HLD
Continue atorvastatin 40 mg daily
# IBS hx- predominant diarrhea
# BPH
No medication reported
# h/o gout
DVT prophylaxis: CONTRACT ACCOUNTANT Pradaxa
FC
DW
DW RN
Anticipated Discharge: 24 - 48 hours
Subjective/Interval History
-
Date of Service: October 15, 2024
Objective Data
-
Labs:
Laboratory Results
10/15/24
02:40
WBC 6.6
Hgb 13.4
Hct 36.9 L
Plt Count 161
Sodium 136
Potassium 3.5
Chloride 102
Carbon Dioxide 20 L
BUN 6 L
Creatinine 0.7
Glucose 103 H
Calcium 8.4
Vital Signs:
Vital Signs
Temp Pulse Resp BP Pulse Ox
36.8 C 91 20 129/82 97
10/15/24 07:20 10/15/24 07:30 10/15/24 07:20 10/15/24 07:30 10/15/24 07:20
I&O
10/14/24 10/15/24 10/16/24
06:59 06:59 06:59
Intake Total 1083 / 1083
Balance 1083 / 1083
Review of Systems
-
History Source: Patient
All other systems: Reviewed and negative
Physical Exam
-
General: Well Developed, Well Nourished, No Apparent Distress, Comfortable and Conversant
HEENT: Normocephalic, Atraumatic and Moist Mucous Membranes
Respiratory: Clear to Auscultation and Non Labored Respirations; Negative Accessory Resp Muscle Use
Cardiac: Regular Rhythm and S1/S2
GI: Soft and Nontender
Musculoskeletal: Edema, Right Lower Extrem (much improved ) and Edema, Left Lower Extrem (much improved )
Skin: Warm and Dry; Negative Rash
Neuro: AO x 3
Psych: Calm and Intact Judgement/Insight
Data Reviewed
-
Medical Tests (Nuc Med, Echo etc): Report Reviewed by me
Labs: Labs Reviewed by me
[2024-10-15] MEDS: PROTONIX 40 MG PO (08:52)
[2024-10-15] MEDS: PRADAXA 150 MG PO (08:53)
[2024-10-15] MEDS: KCL 40 MEQ PO (08:56)
[2024-10-15] MEDS: MAGNESIUM SULFATE 50 IV (08:57)
--- NOTE | 2024-10-15 09:42 | PTCARENOTE ---
Assumed care of pt from night RN. Pt received awake and alert, Ox3. VSs, CM shows NSR 90's, POX 97% on RA. He denies any pain or discomfort at this time. Dr. Medel in, no CV scheduled today. Trops unremarkable. Will continue to monitor closely.
--- NOTE | 2024-10-15 10:02 | W.PN.CD ---
Today's Communication / Plan
-
Add prn propranolol to control future sx with breakthrough AFib, work on AFib risk factor modification
Outpt stress test for CP
Impression / Plan
-
Afib, paroysmal
- Back to NSR
- Tele fine
- Add prn propranolol
- Last afib more than 20 months ago
- Reviewed AFib risk factor modification
- Reviewed option to proceed to ablation or add AAD if AFib worsens
Brief atypical chest pain in NSR this AM
HX HFpEF
HTN
HLD
Obesity - he is on Zepbound since July 2024, per PCP.
Subjective
No complaints now
Physical Exam
Vital Signs/Labs
Vital Signs
Temp Pulse Resp BP Pulse Ox
98.2 F 91 20 129/82 97
10/15/24 07:20 10/15/24 07:30 10/15/24 07:20 10/15/24 07:30 10/15/24 09:36
10/14/24 10/15/24 10/16/24
06:59 06:59 06:59
Actual Weight 119.5 kg
10/15/24 02:40
10/15/24 02:40
Magnesium 1.7 mg/dl (1.6-2.3) 10/15/24 02:40
10/14/24
07:39
Xog-E-Iqnomxfioac Pept 88.4
LAB Results
10/14/24 10/15/24 10/15/24
07:39 07:00 07:04
Troponin I < 0.012 Cancelled < 0.012
10/15/24 10/15/24
13:00 19:00
Troponin I Cancelled Cancelled
Physical Exam
Constitutional: No acute distress
EENT: Anicteric
Cardiovascular: Rhythm & rate is regular and Pedal edema is absent
Respiratory: Respiratory effort normal and Lungs clear to auscul.
GI: Soft and Distention absent
Neuro/Psych: AO x 3
Data Reviewed
-
Date of Service: October 15, 2024
[2024-10-15] MEDS: TYLENOL 650 MG PO (11:18)
[2024-10-15] MEDS: AFLURIA (36 mos+) 2024-2025 FORMULA 0.5 ML IM (11:19)
--- NOTE | 2024-10-15 11:36 | PTCARENOTE ---
Tylenol 650 mg given as per JAN for 4/10 h/a pain. Flu Vax administered as per JAN.
--- NOTE | 2024-10-15 12:09 | PTCARENOTE ---
All D/C info reviewed with pt and spouse, all questions answered. Pt D/C'd home with .
--- NOTE | 2024-10-15 14:50 | W.DCSUMMARY ---
Discharge Summary
Discharge Data
Date of Admission: 10/14/24
Date of Discharge: 10/15/24
-
Pending Results: No
Hospital Course
Principal Diagnosis:
Atrial fibrillation (A-fib) with rapid ventricular rate (RVR) on admission
Suspect acute mild heart failure due to A-fib RVR on admission
Hypokalemia and Hypomagnesemia
Chronic Diagnoses:�
Hypertension
Hyperlipidemia
Irritable bowel syndrome- predominant diarrhea
Benign prostate hypertrophy
Gout
Consultations:�
Cardiology
Procedures:�
None
Clinical course:�
This is a 54 year old male with past medical history as stated above, who presented with palpitation and shortness of breath.
Problem 1:
A fib RVR.
His TSH was within normal limits at 2.97.
He failed cardioversion in ED.
He was treated with Cardizem drip on admission, and self converted to normal sinus rhythm.
He can continue with his prior to admission Toprol 50 mg daily, with propranolol for 20 mg as needed for breakthrough A-fib per his kitman.
He can continue with his prior to admission Pradaxa.
Of note, his echo was unrevealing, showed EF 70%. Normal diastolic function. Normal right ventricular size and function. No significant valve abnormalities. No evidence of pulmonary hypertension.
Problem 2:
Suspect Acute CHF 2/2 A fib RVR.
He received IV Lasix 40 mg x 1 dose this admission.
His lower extremity edema improved following Lasix. There is no need to continue further Lasix per cardiology.
Problem 3:
Hypokalemia and Hypomagnesemia.
Lytes were repleted.
As for the rest of his medical problems, they were stable during his hospital stay.
Discharge Plan
-
Patient Disposition: Home (Routine Discharge)
Discharge Diagnosis/Procedures: A fib rapid ventricular rate (resolved);
atypical chest pain
Condition: Good
Diet: As tolerated, Low Fat and Low Cholesterol
Activity: As tolerated
Driving Restrictions: As prior to admission
Activity Restrictions/Additional Instructions:
Outpatient stress test for your atypical chest pain
Instructions: *CBC Heart Failure Instructions
Referrals:
Reyes Ocampo, DO [Family Provider] - in less than 1 week
Additional Discharge Medication Instructions: Take propranolol as needed for breakthrough AFib
Prescriptions:
New
propranolol 20 mg tablet
20 mg PO Q6H PRN (Reason: palpitation) Qty: 60 0RF
Continued
omega-3 acid ethyl esters [Lovaza] 1 GM capsule
2 g PO BID
atorvastatin 40 mg Tablet
40 mg PO HS
metoprolol succinate 50 mg Tablet Extended Release 24 Hr
50 mg PO DAILY Qty: 30 0RF
losartan 50 mg Tablet
50 mg PO DAILY
acetaminophen 325 mg Tablet
650 mg PO Q4H PRN (Reason: mild pain)
potassium 99 mg Tablet
99 mg PO DAILY
garlic Capsule
1 cap PO DAILY
tadalafil 5 mg Tablet
5 mg PO DAILY
dabigatran etexilate 150 mg Capsule
150 mg PO BID
Zepbound 2.5 mg/0.5 mL Pen Injector
2.5 mg SC SA@1900
Rx Instructions:
for 4 weeks
Discharge Orders:
Discharge Patient (As Directed); Ordered 10/15/24
Ordered By: Marcela Brian
Care Plan Goals
Care Plan Goals:
Problem: Readiness for enhanced knowledge related to diagnosis and treatment plan
Goal: Understand your diagnosis and treatment plan needs, including medications if applicable.
Instructions: Know your diagnosis, underlying causes and treatment plan options, including medications if applicable. Consult with your health care team to learn about your diagnosis and treatment plan, including medications if applicable.
Discharge Date and Time
Discharge Date/Time: 10/15/24 12:00
Print Language: UKRAINIAN
== END 2024-10-15 12:00 | disposition home or self-care (01) | DRG 309 ==
LOC: IVU 09:16
PROVIDERS: Physician Assistant; Physician Assistant Medical; ADMITTING PHYSICIAN Internal Medicine; CONSULT PHYSICIAN Internal Medicine Cardiovascular Disease; EMERGENCY PHYSICIAN Emergency Medicine; FAMILY PHYSICIAN Family Medicine; REFERRING PHYSICIAN Internal Medicine Cardiovascular Disease
DX: I48.0 Paroxysmal atrial fibrillation (principal); I50.30 Unspecified diastolic (congestive) heart failure; Z87.891 Personal history of nicotine dependence; E66.9 Obesity, unspecified; Z68.33 Body mass index [BMI] 33.0-33.9, adult; E78.00 Pure hypercholesterolemia, unspecified; I11.0 Hypertensive heart disease with heart failure; E87.6 Hypokalemia; E83.42 Hypomagnesemia; K58.0 Irritable bowel syndrome with diarrhea; Z11.52 Encounter for screening for COVID-19
CPT/HCPCS: 71045; 80053; 80306; 83735; 83880; 84443; 84484; 85025; 87070; 87502; 87811; 90686; 92960; 93005; 93306; 93970; 96374; 96375; 99152; 99291; G0008

== ENCOUNTER 2025-08-23 10:22 | Inpatient (IN) | payer OTHER, SELFPAY ==
[2025-08-23] VITALS (21 sets, daily range): BP systolic 92–147; BP diastolic 52–124; BMI 34.6; BMI 34.9
[2025-08-23 05:27] LABS: Hematocrit 39.6 % (39.0-52.0); Hemoglobin 13.7 g/dL (13.0-18.0); Mean Corp Hgb Conc. 34.6 g/dL (33.0-37.0); Mean Corpuscular Volume 87.0 fL (80.0-94.0); Nucleated Red Blood Cells % 0 % (-); Platelet Count 195 10^3/uL (130-400); Red Cell Dist. Width 11.9 % (11.5-14.5)
[2025-08-23 05:44] LABS: ALT (SGPT) 29 U/L (0-50); AST (SGOT) 34 U/L (17-59); Albumin 4.2 g/dl (3.5-5.0); Alkaline Phosphatase 67 U/L (38-126); Blood Urea Nitrogen 6 mg/dl (9-20); Calcium 9.0 mg/dl (8.4-10.2); Carbon Dioxide 23 mmol/L (22-30); Chloride 106 mmol/L (98-107); Estimated Creatinine Clearance > 125 ml/min; Glucose 103 mg/dl (70-99); Potassium 3.7 mmol/L (3.5-5.1); Sodium 138 mmol/L (135-145); Total Protein 6.8 g/dl (6.3-8.2); eGFR > 60.00
[2025-08-23] MEDS: CARDIZEM 10 MG IV (05:49)
[2025-08-23] MEDS: CARDIZEM 125 IV (05:54)
[2025-08-23] MEDS: NSS 500 IV (05:54)
[2025-08-23 06:16] LABS: TSH 7.77 uIU/ml (0.47-4.68)
--- NOTE | 2025-08-23 06:16 | ED.GENMED ---
History of Present Illness
General
Chief Complaint: Cardiac Symptoms
Source: patient
Time Seen by Provider: 08/23/25 05:59
History of Present Illness
History of Present Illness:
This patient is a 55-year-old male who presents emergency department with complaints of feeling like he is in atrial fibrillation since approximately 8 AM yesterday morning. He says he always knows when he is in A-fib, described as an irregular
heartbeat associated with intermittent lightheadedness and slight dyspnea. He denies chest pain or pressure, neck pain, headache, abdominal pain, nausea, vomiting, or other complaints. He is extremely compliant with his medications including his
anticoagulation and denies missed doses. In addition to his usual metoprolol, throughout the day yesterday he took three doses of propranolol without relief of symptoms. He did describe an episode at dinnertime where he felt like his vision got
really yellow temporarily and short-lived. This has since resolved. He denies syncope, numbness, tingling, double vision, focal weakness, or other complaints. Since starting on a Cardizem drip here in the emergency department, patient states that
he feels better. He is not dyspneic. Patient states that he has been cardioverted in the past and it has not always worked.
Past History
Past History
ED Past Medical History: Arrthythmia (Atrial fib), HTN, Hypercholesterolemia and Other (IBS)
ED Past Surgical History: Other (Left wrist surgery and Right shoulder )
Social History
Tobacco: Former smoker
Alcohol: Occasional
Drug: None
Personal:
Living: with family
Employment: Employed
Family History
Family History: Other (Not much contact with his father history not known)
Phy Exam
Physical Exam
Physical Exam:
GENERAL: Alert , in no apparent distress
EYE: pupils equal and reactive
NECK: Supple, no significant adenopathy.
ENT: o/p clr, mmm.
CARDIAC: Irregularly irregular
LUNGS: Clear breath sounds bilaterally, no acute respiratory distress, no wheezes rales or rhonchi, speaks in full sentences easily
ABDOMEN: Soft, without focal tenderness, no r/g, no cvat
NEUROLOGICAL: Alert and oriented, no focal neuro deficits
SKIN: Warm and dry, skin intact.
MUSCULOSKELETAL: No edema, well perfused.
PSYCH: Normal and appropriate interaction.
Course
Orders/Labs/Results
Orders:
Orders
08/23/25 04:55
Electrocardiogram (*1) Urgent
Reason for Study: Atrial Fibrillation
EKG- Treatment ONCE
08/23/25 05:19
CMP [Comprehensive Metabolic Panel] Urgent
Complete Blood Count/With Diff Urgent
Magnesium Urgent
Comment: ADD ON
TSH Urgent
08/23/25 05:40
0.9% Sodium Chloride 500 ml [Nss] 500 ml IV BOLUS
Diltiazem HCl [Cardizem] 10 mg IV NOW STA
08/23/25 05:45
Diltiazem 125 mg/125 ml Nss [Cardizem] 125 mg in 125 ml IV PER PROTOCOL
Initial dose in mg/hr, then titrate:: 5
Titrate to keep:: Heart rate 80-100 bpm
Titrate by mg/hr:: 5 mg/hr
Frequency of titrations (minutes):: 15
Maximum dose in mg/hr:: 15
08/23/25 06:00
Add On- LAB Urgent
Tests Added?: magnesium
08/23/25 06:21
Metoprolol Xl [Toprol Xl] 50 mg PO NOW STA
08/23/25 06:31
Troponin I Urgent
08/23/25 09:00
Apixaban [Eliquis] 5 mg PO ONCE ONE
Abnormal Lab Results
08/23/25
05:19
RBC 4.55 L 10^6/uL
(4.70-6.10)
Monocytes % 10.9 H %
(1.7-9.3)
BUN 6 L mg/dl
(9-20)
Glucose 103 H mg/dl
(70-99)
Magnesium 1.2 L mg/dl
(1.6-2.3)
TSH 7.77 H uIU/ml
(0.47-4.68)
08/23/25 05:19
08/23/25 05:19
Vital Signs
Initial and Last Documented VS:
Initial Vital Signs
Temp Pulse Resp BP Pulse Ox
98.6 F 111 17 131/81 97
08/23/25 05:02 08/23/25 05:02 08/23/25 05:02 08/23/25 05:02 08/23/25 05:02
Last Documented Vital Signs
Temp Pulse Resp BP Pulse Ox
98.6 F 100 10 92/72 98
08/23/25 05:02 08/23/25 07:00 08/23/25 07:00 08/23/25 06:30 08/23/25 07:00
*Pulse Oximetry
SaO2: 98
Oxygen Mode of Delivery: Room air
Update Note
Update Note:
Patient presents to the Emergency Department with ____feeling like heart beat is irregular
Number and Complexity of Problems Addressed at the Encounter
� Chronic conditions affecting care:
� Acute Exacerbation and/or Progression of Chronic Illness:
� Differential Diagnosis includes: But not limited to A-fib, a flutter, SVT, heart failure, ACS, etc. etc.
Amount and/or Complexity of Data to be Reviewed and Analyzed
� I performed an independent evaluation of and my interpretation is:
EKG: Read by me, A-fib with RVR rate 111, no acute ischemia
CT:
Xrays:
Laboratory Studies: Generally unremarkable
Other:
� Review of other/old records reveals: Discharge summary from October 2024 reviewed. At that time he presented with A fib RVR.
His TSH was within normal limits at 2.97.
He failed cardioversion in ED.
He was treated with Cardizem drip on admission, and self converted to normal sinus rhythm.
He can continue with his prior to admission Toprol 50 mg daily, with propranolol for 20 mg as needed for breakthrough A-fib per his drone pilot.
He can continue with his prior to admission Pradaxa.
Of note, his echo was unrevealing, showed EF 70%. Normal diastolic function. Normal right ventricular size and function. No significant valve abnormalities. No evidence of pulmonary hypertension.
� Clinical information was obtained by an independent historian:
� Prescriptions/Medications Considered but not given:
� Further testing considered but not performed:
Risk of Complications and/or Morbidity or Mortality of Patient Management
� Social determinants of health affecting care:
� Discussion with other providers (PCP, Hospitalists, Consultants, etc):
� Escalation of care including admission/observation vs risk of discharge considered: Repeat assessment here, patient remains comfortable. With p.o. beta-nova added, blood pressure now 92/72. Will start IV fluids and recheck
blood pressure, not a candidate for outpatient management at this time, will admit for continuation of Cardizem drip and cardiology consult. Hospitalist made aware. Long discussion with patient regarding cardioversion as he technically could be a
candidate given that he is fully anticoagulated however he describes waking up during sedation for the first time, and failing cardioversion and subsequent attempts following that.
ED Attending Note
-
Portions of this chart may have been created with voice recognition software.� Occasional wrong word or��sound alike� substitutions may have occurred due to the inherent limitations of voice recognition software.
Discharge Plan
Departure
Patient Disposition: Admit
Date of Disposition: 08/23/25
Time of Disposition: 07:47
Admit to: Telemetry
Presentation/result/management discussed w/ accepting MD/DO: Hospitalist
Condition: Good
Discharge Problem:
A-fib
Prescriptions:
No Action
omega-3 acid ethyl esters [Lovaza] 1 GM capsule
2 g PO BID
atorvastatin 40 mg Tablet
40 mg PO HS
metoprolol succinate 50 mg Tablet Extended Release 24 Hr
50 mg PO DAILY Qty: 30 0RF
losartan 50 mg Tablet
50 mg PO DAILY
potassium 99 mg Tablet
99 mg PO DAILY
tadalafil 5 mg Tablet
5 mg PO DAILY
dabigatran etexilate 150 mg Capsule
150 mg PO BID
propranolol 20 mg tablet
20 mg PO Q6H PRN (Reason: palpitation) Qty: 60 0RF
Eliquis 5 mg Tablet
5 mg PO BID
Mounjaro 7.5 mg/0.5 mL Pen Injector
7.5 mg SC QWEEK
Referrals:
Reyes Ocampo DO [Family Provider, Family Practice]
Interventions
Interventions:
*Risk Screen - Suicide Last Done: 08/23/25 05:05
*General Assessment Last Done: 08/23/25 06:19
*Neglect/Abuse Screening Last Done: 08/23/25 05:05
*ED- Fall Risk Assessment Last Done: 08/23/25 05:37
*ED COVID-19 Vaccine History Last Done: 08/23/25 05:35
ED- Pulmonary Assessment Last Done: 08/23/25 05:25
ED- Cardiac Assessment Last Done: 08/23/25 05:25
Discharge Date and Time
Print Language: BERMUDIAN
[2025-08-23] MEDS: TOPROL XL 50 MG PO ×2 (06:28→19:38)
[2025-08-23 06:37] LABS: Magnesium 1.2 mg/dl (1.6-2.3)
[2025-08-23 07:07] LABS: Troponin I < 0.012 ng/ml
[2025-08-23] MEDS: ELIQUIS 5 MG PO ×2 (08:21→19:37)
[2025-08-23] MEDS: ZOFRAN 4 MG IV (09:02)
--- NOTE | 2025-08-23 09:20 | HPS.HSE ---
Family Physician
-
Family Physician: Reyes Ocampo
Chief Complaint
-
Palpitations
History of Present Illness
55-year-old male with a past medical history of known atrial fibrillation on Eliquis, hypertension, and hyperlipidemia presents with a 1 day history of palpitations. Patient reports waking up yesterday, and feeling the sensation of his heart
fluttering, and knowing that he was in atrial fibrillation. He took his usual medications, Toprol XL 50 mg daily. He also took a few doses of propranolol. Despite these measures, he continues to have rapid fib. Associated symptoms include
shortness of breath, bilateral lower extremity edema, and intermittent lightheadedness. He denies chest pain. He was nauseous, denies vomiting. Denies abdominal pain, no dysuria. Has intermittent hemorrhoidal bleeding.
Medical History
Past Medical History
Past Medical History: Reports Arrhythmia (A. fib), HTN, Hypercholesterolemia and Other (BPH, IBS, former smoker 30-year 1 pack/day quit 8 years ago per pt)
Past Surgical History: Reports Orthopedic (Left wrist surgery, right shoulder surgery)
Social History
Tobacco: Former Smoker (30-year 1 pack/day quit 8 years ago)
Alcohol: Occasional
Drug: None
Personal:
Living: With Family ( at bedside)
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
Family History
Family History: Not pertinent
Allergies / Home Medications
Allergies reflects when Allergies were last updated in [facility].
Home Medications with original date entered in [employer]
Allergy/Medication List:
Allergies
Allergy/AdvReac Type Severity Reaction Status Date / Time
Penicillins Allergy Rash Verified 08/23/25 05:02
Home Medications Table - record
�Medication �Instructions �Recorded �Confirmed
omega-3 acid ethyl esters 1 gram 2 g PO BID Supplement 01/28/21 08/23/25
capsule (Lovaza)
atorvastatin 40 mg tablet 40 mg PO HS High cholesterol 06/07/22 08/23/25
metoprolol succinate 50 mg 50 mg PO DAILY #30 tabs 08/11/22 08/23/25
tablet,extended release 24 hr
losartan 50 mg tablet 50 mg PO DAILY Blood Pressure 10/14/24 08/23/25
potassium 99 mg tablet 99 mg PO DAILY Supplement 10/14/24 08/23/25
tadalafil 5 mg tablet 5 mg PO DAILY Heart 10/14/24 08/23/25
Disease/Condition
propranolol 20 mg tablet 20 mg PO Q6H PRN palpitation #60 10/15/24 08/23/25
tabs
apixaban 5 mg tablet (Eliquis) 5 mg PO BID 08/23/25 08/23/25
magnesium oxide 400 mg PO DAILY 08/23/25 08/23/25
multivitamin 1 tab PO DAILY 08/23/25 08/23/25
pantoprazole 40 mg tablet,delayed 40 mg PO QPM Gastrointestinal Issue 08/23/25 08/23/25
release
tirzepatide 7.5 mg/0.5 mL 7.5 mg SC TH 08/23/25 08/23/25
subcutaneous pen injector
(Guanakito)
Review of Systems
-
A 12 point ROS was completed and negative except as noted: Yes
Physical Exam
Vital Signs
Vital Signs
Temp Pulse Resp BP Pulse Ox
98.6 F 100 10 92/72 98
08/23/25 05:02 08/23/25 07:00 08/23/25 07:00 08/23/25 06:30 08/23/25 07:00
Physical Exam
General: No Apparent Distress
HEENT: NormoCephalic, Anicteric and Moist mucous membranes
Respiratory: Clear
Cardiac: Irregular Rhythm and Tachycardia
GI: Soft, Non Tender, Non Distended and Normal Bowel Sounds
Musculoskeletal: No Clubbing, No Cyanosis, Edema, Left Lower Extremity and Edema, Right Lower Extremity
Skin: Warm and Dry
Neuro: AO x 3
Psych: Calm
Laboratory Results
-
08/23/25 05:19
08/23/25 05:19
Laboratory Results
Total Bilirubin 1.0 mg/dl (0.2-1.3) 08/23/25 05:19
AST 34 U/L (17-59) 08/23/25 05:19
ALT 29 U/L (0-50) 08/23/25 05:19
Alkaline Phosphatase 67 U/L (38-126) 08/23/25 05:19
Troponin I < 0.012 ng/ml 08/23/25 06:31
Impression/Plan
-
HPI: 55-year-old male with a past medical history of known atrial fibrillation on Eliquis, hypertension, and hyperlipidemia presents with a 1 day history of palpitations. Patient reports waking up yesterday, and feeling the sensation of his heart
fluttering, and knowing that he was in atrial fibrillation. He took his usual medications, Toprol XL 50 mg daily. He also took a few doses of propranolol. Despite these measures, he continues to have rapid fib. Associated symptoms include
shortness of breath, bilateral lower extremity edema, and intermittent lightheadedness. He denies chest pain. He was nauseous, denies vomiting. Denies abdominal pain, no dysuria, no black or bloody stools.
#Atrial fibrillation with rapid ventricular response
Appreciate cardiology input, Toprol XL increased to 50 mg twice a day
Continue diltiazem drip, Eliquis
Possible synchronized cardioversion tomorrow
#Acute on chronic heart failure with a preserved ejection fraction
IV Lasix as per cardiology
#Profound hypomagnesemia
Give magnesium sulfate 4 g IV, recheck a.m. labs
#History of essential hypertension
Blood pressure soft, hold home losartan
#Intermittent hemorrhoidal bleeding
Hemoglobin remains around
#Gastroesophageal reflux disease
Continue PPI
DVT prophylaxis�Eliquis
Full code
Updated at bedside 08/23
Total time spent to see the patient on the floor, examine the patient, review data and lab results, discuss treatment plan with patient, nursing staff around 77 minutes.
[2025-08-23] MEDS: MAGNESIUM SULFATE 100 IV (09:56)
--- NOTE | 2025-08-23 09:57 | CON.CAR ---
Addendum entered and electronically signed by Ernesto Welch MD 08/23/25 11:54:
I saw and examined the patient.
The DIGESTION OPERATOR's note was reviewed and I agree with the note.
Comment:
55-year-old man with paroxysmal atrial fibrillation on apixaban, HFpEF, hypertension, hyperlipidemia, SYEDA, and obesity who presents with recurrent atrial fibrillation. He reports yesterday around 8 AM he was awoken from sleep with symptoms of
atrial fibrillation (palpitations, chest pressure). He is always symptomatic with his A-fib. Episodes have been happening at least once per month recently. He tried to take 2 doses of propranolol and do his usual maneuvers (ice on the back of his
neck, cold water on his face) but was still unable to get out of A-fib. Heart rates were in the 120s still this a.m. so he presented to the ER. He remains in atrial fibrillation with heart rates in the 100s and is on the diltiazem drip at 5.
Physical exam: Irregular rate/rhythm, no murmurs, 1+ lower extremity edema to the knees bilaterally, clear lungs
I independently reviewed his ECGs which show 08/23/2025: A-fib with RVR, HR 111 bpm. Prior ECG from 10/15/2024 is normal sinus rhythm with QTc 479 ms by my calculation.
Labs notable for elevated TSH with normal T4, NT proBNP 1940, creatinine 0.8
My review of CXR shows clear lungs with no pulmonary edema.
Paroxysmal atrial fibrillation: We are limited in use of antiarrhythmics by his long QT interval. We will increase his metoprolol to 50 mg twice daily for better rate control. We will leave on the diltiazem drip at 5 to see if it helps him
cardiovert. If he is still in A-fib tomorrow, we will plan for synchronized cardioversion. I confirmed that he has not missed any doses of Eliquis in the past 3 weeks. Ultimately, he is interested in ablation which would be a good option for him.
Acute on chronic HFpEF: A-fib is trigger. He notes this always happens when he goes into A-fib. IV Lasix today. Expect it will resolve once he is back in sinus rhythm.
Original Note:
Consultation
Consultation Request
Date/Time Consultation Requested: 08/23/2025 09:30
Date/Time Consultation Performed: 08/23/2025 10:00
Requesting Provider: Dr. Jose
Performing Provider: SAMMY Arevalo for Dr. Welch
Reason for Consultation: Atrial fibrillation with rapid ventricular response
Medical History
-
Chief Complaint: Shortness of breath
History of Present Illness:
Reyes Wolf is a 55-year-old male (known to Dr. Medel, his primary manager community), with HFpEF, paroxysmal atrial fibrillation (on apixaban), hypertension, hypercholesterolemia, hypertriglyceridemia, SYEDA, and obesity presented to the emergency
department the chief complaint of shortness of breath. He woke up yesterday morning and felt he was in atrial fibrillation. He is experiencing palpitations, dizziness, and shortness of breath. He is not having any chest pain. He has had no missed
doses of either metoprolol nor apixaban. He took 3 doses of propranolol yesterday. He also tried vagal maneuvers. He is normally successful in getting himself back into sinus rhythm but unfortunately it did not work. He presented to the
emergency department with atrial fibrillation with rapid ventricular response. He had an elevated proBNP of 1940 (highest documented proBNP). He appears volume overloaded on exam. Chest x-ray is pending.
Past Medical History
Past Medical History: Arrhythmias (Paroxysmal atrial fibrillation), CHF (HFpEF), HTN and Hypercholesterolemia
Past Surgical History: Orthopedic
Social History
Tobacco: Former Smoker
Personal:
Living: With Family
Employment: Employed
Family History
Family History: Reviewed & Not Pertinent
Allergies / Home Medications
Allergy/AdvReac Type Severity Reaction Status Date / Time
Penicillins Allergy Rash Verified 08/23/25 05:02
�Medication �Instructions �Recorded �Confirmed �Type
omega-3 acid ethyl esters 1 gram 2 g PO BID Supplement 01/28/21 08/23/25 History
capsule (Lovaza)
atorvastatin 40 mg tablet 40 mg PO HS High cholesterol 06/07/22 08/23/25 History
metoprolol succinate 50 mg 50 mg PO DAILY #30 tabs 08/11/22 08/23/25 Rx
tablet,extended release 24 hr
losartan 50 mg tablet 50 mg PO DAILY Blood Pressure 10/14/24 08/23/25 History
potassium 99 mg tablet 99 mg PO DAILY Supplement 10/14/24 08/23/25 History
tadalafil 5 mg tablet 5 mg PO DAILY Heart 10/14/24 08/23/25 History
Disease/Condition
propranolol 20 mg tablet 20 mg PO Q6H PRN palpitation #60 10/15/24 08/23/25 Rx
tabs
apixaban 5 mg tablet (Eliquis) 5 mg PO BID 08/23/25 08/23/25 History
magnesium oxide 400 mg PO DAILY 08/23/25 08/23/25 History
multivitamin 1 tab PO DAILY 08/23/25 08/23/25 History
pantoprazole 40 mg tablet,delayed 40 mg PO QPM Gastrointestinal Issue 08/23/25 08/23/25 History
release
tirzepatide 7.5 mg/0.5 mL 7.5 mg SC TH 08/23/25 08/23/25 History
subcutaneous pen injector
(Guanakito)
Review of Systems
-
History Source: Patient
All other systems: Negative unless noted
Constitutional: Fatigue
EENT: No Symptoms
Respiratory: Trouble Breathing
Cardiac: Palpitations
Abdomen/GI: No Symptoms
: No Symptoms
Musculoskeletal: No Symptoms
Skin: No Symptoms
Neurological: No Symptoms
Endocrine: No Symptoms
Hematologic/Lymphatic: No Symptoms
Physical Exam
Vital Signs
Temp Pulse Resp BP Pulse Ox
98.6 F 115 16 96/57 95
08/23/25 05:02 08/23/25 09:30 08/23/25 09:30 08/23/25 09:30 08/23/25 09:30
Lab Results
08/23/25 05:19
08/23/25 05:19
Troponin I < 0.012 ng/ml 08/23/25 06:31
Physical Exam
General: Well Developed, Well Nourished and No Apparent Distress
HEENT: Normocephalic, Anicteric and Moist Mucous Membranes
Respiratory: Clear and Non Labored Respirations
Cardiac: S1/S2, Irregular Rhythm and Peripheral Edema
Breast: Deferred by me
GI: Soft, Non Tender, Non Distended and Normal Bowel Sounds
Rectal: Deferred by Provider
Genito-urinary: No Costovertebral Tender
Musculoskeletal: No Clubbing, No Cyanosis and Edema
Skin: Warm and Dry
Neuro: AO x 3
Hematologic/Lymphatic: No Lymphadenopathy
Psych: Calm
Impression / Plan
-
I/P: 55M with HFpEF, paroxysmal atrial fibrillation (on apixaban), hypertension, hypercholesterolemia, hypertriglyceridemia, SYEDA, and obesity presented to the emergency department the chief complaint of shortness of breath
Primary manager community: Dr. Medel
HFpEF, acute on chronic, severe requiring hospitalization
- Diuresis with furosemide 40 mg IV twice daily, this requires intensive monitoring
- Add SGLT2i, can consider MRA with the absence of hyperkalemia and normal renal function
- Update TTE when rate control achieved
- Trend daily weight, I/O, and BMP with diuresis
- Heart failure education
Atrial fibrillation with rapid ventricular response
- Rate control increase metoprolol to BID, QTc isn't favorable for sotalol/dofetilide
- DCCV in a.m. if closer to euvolemia
- Plan to restore sinus rhythm this hospitalization, DCCV in am if euvolemic
- Oral Anticoagulation: Apixaban 5 mg twice daily, he denies missed doses and abnormal bleeding
- [id number]: score at least 2 (Heart failure, HTN)
- We briefly discussed catheter ablation and he is interested
Hypercholesterolemia with hypertriglyceridemia
- Lipid panel 03/2025: TC 164, LDL 32, HDL 86, TG 321
SYEDA, on CPAP
Obesity, on Mounjaro
Data Reviewed
-
EKG: Report Reviewed by me (Atrial fibrillation with rapid ventricular response, nonspecific ST abnormality, rate 111)
Medical Tests (Nuc Med, Echo etc): Report Reviewed by me
Labs: Labs Reviewed by me
Old Records: Reviewed
[2025-08-23] MEDS: LASIX 40 MG IV ×2 (11:58→16:45)
[2025-08-23 12:39] LABS: Glycohemoglobin (HgbA1c) 5.0 % (4.0-5.6)
--- NOTE | 2025-08-23 14:23 | CM ---
Chart reviewed. Patient is independent of ADLS, lives with his in a 2 story condo, 10 LISA, 0 DME. Plan is for the patient to return home. CM to follow
--- NOTE | 2025-08-23 15:20 | PTCARENOTE ---
Received pt from ER into 2246 for A fib w RVR. Pt is AAOx3 A fib on the monitor rates 90-110 Cardizem @ 5 mg/HR BP stable. POC discussed with pt and spouse. Call palencia within reach.
[2025-08-23] MEDS: PROTONIX 40 MG PO (16:45)
[2025-08-23] MEDS: LIPITOR 40 MG PO (22:13)
--- NOTE | 2025-08-23 22:29 | PTCARENOTE ---
Received pt @ change of shift. AAOx3, BP 103/64, HR 90s-120s-- A-Fib on monitor. Cardizem gtt running @ 5mL/hr through Rt AC. Pt c/o SOB when ambulating-- 02 stable and lungs clear. Discussed being NPO @ midnight for CV in AM. Pt verbalizes
understanding. Call palencia within reach.
[2025-08-24] MEDS: CARDIZEM 125 IV (01:02)
[2025-08-24 02:02] VITALS: BP 118/71
[2025-08-24 03:09] LABS: Blood Urea Nitrogen 8 mg/dl (9-20); Carbon Dioxide 27 mmol/L (22-30); Chloride 104 mmol/L (98-107); Estimated Creatinine Clearance > 125 ml/min; Magnesium 1.5 mg/dl (1.6-2.3); Sodium 137 mmol/L (135-145); eGFR > 60.00
[2025-08-24 03:17] LABS: Calcium 8.6 mg/dl (8.4-10.2); Glucose 110 mg/dl (70-99); Potassium 3.5 mmol/L (3.5-5.1)
--- NOTE | 2025-08-24 08:22 | W.PN.CD ---
Today's Communication / Plan
-
- Stable for discharge
- EP consult in 1-2 weeks.
Impression / Plan
-
I/P: 55M with HFpEF, paroxysmal atrial fibrillation (on apixaban), hypertension, hypercholesterolemia, hypertriglyceridemia, SYEDA, and obesity presented to the emergency department the chief complaint of shortness of breath
Primary market development executive: Dr. Medel
HFpEF, acute on chronic, severe requiring hospitalization
- Diuresis with furosemide 40 mg IV twice daily, this requires intensive monitoring
- Add SGLT2i, started Farxiga.
- TTE 08/23/25; LVEF 60% unchanged.
- Euvolemic now.
- Heart failure education
Atrial fibrillation with rapid ventricular response
- Converted to sinus at 1:19 am this morning.
- Symptomatic AF and knew when AF stopped for him.
- Plan is to continue rate control with metoprolol to 50 BID, QTc isn't favorable for sotalol/dofetilide
- Will see EP for ablation consult in 1-2 weeks.
- Oral Anticoagulation: Apixaban 5 mg twice daily, he denies missed doses and abnormal bleeding
- [id number]: score at least 2 (Heart failure, HTN)
Hypercholesterolemia with hypertriglyceridemia
- Lipid panel 03/2025: TC 164, LDL 32, HDL 86, TG 321
SYEDA, on CPAP
Obesity, on Mounjaro
Physical Exam
Vital Signs/Labs
Vital Signs
Temp Pulse Resp BP Pulse Ox
98.1 F 85 16 118/71 96
08/23/25 22:24 08/24/25 02:45 08/23/25 22:24 08/24/25 02:02 08/23/25 22:24
08/23/25 08/24/25 08/25/25
06:59 06:59 06:59
Actual Weight 122 kg 123.3 kg
08/23/25 05:19
08/24/25 02:06
Magnesium 1.5 mg/dl (1.6-2.3) L 08/24/25 02:06
TSH 7.77 uIU/ml (0.47-4.68) H 08/23/25 05:19
Free T4 1.37 ng/dl (0.78-2.19) 08/23/25 05:19
08/23/25
06:31
Nmd-H-Cxmcinynvjz Pept 1940
LAB Results
08/23/25
06:31
Troponin I < 0.012
Physical Exam
Constitutional: No acute distress and Comfortable
EENT: Anicteric and Moist mucous membranes
Cardiovascular: Rhythm & rate is regular, Pedal edema is absent and JVD pressure is normal
Respiratory: Respiratory effort normal, Lungs clear to auscul. and Wheeze Absent
GI: Soft, Distention absent, Non tender and Normal bowel sounds
Neuro/Psych: Alert, Oriented, AO x 3 and Motor deficits absent
Data Reviewed
-
Date of Service: August 24, 2025
Medical Decision Making: Reviewed Test Results, Test Interpretation and Review of Case with other Provider
EKG: Tracing Personally Visualized and interpreted
Echo: Report Reviewed by me
Medical Tests (PFT, Pathology etc): Discussed with Physician and Discussed with Patient
Labs: Labs Reviewed by me
Old Records: Reviewed
[2025-08-24 08:28] VITALS: BP 123/76
[2025-08-24 08:34] VITALS: BMI 34.1
--- NOTE | 2025-08-24 08:58 | W.PN.HOSP.TC ---
Today's Communication/Plan
-
Cleared by cardiology for discharge today
Assessment / Plan
Assessment / Plan
HPI: 55-year-old male with a past medical history of known atrial fibrillation on Eliquis, hypertension, and hyperlipidemia presents with a 1 day history of palpitations. Patient reports waking up yesterday, and feeling the sensation of his heart
fluttering, and knowing that he was in atrial fibrillation. He took his usual medications, Toprol XL 50 mg daily. He also took a few doses of propranolol. Despite these measures, he continues to have rapid fib. Associated symptoms include
shortness of breath, bilateral lower extremity edema, and intermittent lightheadedness. He denies chest pain. He was nauseous, denies vomiting. Denies abdominal pain, no dysuria, no black or bloody stools.
#Atrial fibrillation with rapid ventricular response
Appreciate cardiology input, Toprol XL increased to 50 mg twice a day
Converted to normal sinus rhythm overnight on diltiazem drip, which has since been discontinued
Continue Eliquis, started on Farxiga
Cleared by cardiology for discharge today, follow-up with EP in the office
#Acute on chronic heart failure with a preserved ejection fraction
Resolved status post IV Lasix
#Profound hypomagnesemia
Mg 1.5 today status post 4 g IV supplementation yesterday
Will give an additional 2 g IV prior to discharge
Increase home mag oxide 4 400 mg daily to 800 mg daily
#History of essential hypertension
Resume losartan upon discharge
#Intermittent hemorrhoidal bleeding
Hemoglobin remains normal
#Gastroesophageal reflux disease
Continue PPI
#Obesity due to excess calories
Affects all aspects of care
DVT prophylaxis�Eliquis
Full code
Updated at bedside 08/23
Physical Exam
General: Obese, no acute distress
HEENT: Normocephalic, Atraumatic, EOMI, MMM
Respiratory: Clear to Auscultation bilaterally
Cardiac: Normal S1/S2, Regular Rate and Rhythm
GI: Soft, Nontender, Nondistended, Normal Bowel Sounds
Extremities: No Clubbing, Cyanosis
Improved lower extremity edema
Neuro: Nonfocal/Grossly Intact
Anticipated Discharge: Today
Subjective/Interval History
-
Date of Service: August 24, 2025
Converted to normal sinus rhythm overnight. Shortness of breath, palpitations resolved. Denies chest pain. No fever, no vomiting.
Objective Data
-
Labs:
Laboratory Results
08/24/25
02:06
Sodium 137
Potassium 3.5
Chloride 104
Carbon Dioxide 27
BUN 8 L
Creatinine 0.8
Glucose 110 H
Calcium 8.6
Vital Signs:
Vital Signs
Temp Pulse Resp BP Pulse Ox
98.1 F 62 18 118/71 100
08/24/25 08:31 08/24/25 08:31 08/24/25 08:31 08/24/25 02:02 08/24/25 08:31
I&O
08/23/25 08/24/25 08/25/25
06:59 06:59 06:59
Intake Total 260 / 260
Output Total 1800 / 1800
Balance -1540 / -1540
[2025-08-24] MEDS: KCL 40 MEQ PO (09:21)
[2025-08-24] MEDS: ELIQUIS 5 MG PO (09:21)
[2025-08-24] MEDS: FARXIGA 10 MG PO (09:21)
[2025-08-24] MEDS: MAGNESIUM SULFATE 50 IV (09:21)
[2025-08-24] MEDS: TOPROL XL 50 MG PO (09:21)
--- NOTE | 2025-08-24 10:50 | CM ---
Chart reviewed. Patient is independent of ADLS, lives with his in a 2 [address], 10 LISA, 0 DME. Plan is for the patient to return home. CM to follow
--- NOTE | 2025-08-24 11:26 | PTCARENOTE ---
Assumed care of the pt @ 0700. Pt AAOx3 SR on the monitor VSS denies cp Yovanyzem gtt stopped @ 0900. POC discussed with pt. Pt ambulates in room call palencia within reach.
--- NOTE | 2025-08-24 12:14 | W.DCSUMMARY ---
Discharge Summary
Discharge Data
Date of Admission: 08/23/25
Date of Discharge: 08/24/25
-
Pending Results: No
Hospital Course
Discharge diagnoses:
Atrial fibrillation with rapid ventricular response
Acute on chronic heart failure with a preserved ejection fraction
Profound hypomagnesemia
Essential hypertension
Intermittent hemorrhoidal bleeding
Gastroesophageal reflux disease
Obesity due to excess calories
Consults: Cardiology
Hospital course:
55-year-old male with a past medical history of known atrial fibrillation on Eliquis, hypertension, and hyperlipidemia who was admitted for atrial fibrillation with rapid ventricular response and acute on chronic heart failure with a preserved
ejection fraction. Patient was seen in conjunction with cardiology, and treated with a diltiazem drip and IV Lasix. His Toprol XL was increased from 50 mg daily to 50 mg twice a day. He converted to normal sinus rhythm overnight. His diltiazem
was discontinued. His heart failure resolved.
Patient had profound hypomagnesemia. He received IV magnesium while in the hospital, and will be discharged on an increased dose of magnesium oxide 800 mg daily, compared to his previous dose of 400 mg daily.
Patient is medically stable and cleared by cardiology for discharge on an increased dose of Toprol XL 50 mg twice a day. He needs to follow-up with EP in the office as scheduled.
Disposition: Home self-care
Discharge planning: Required 34 minutes
Discharge Plan
-
Patient Disposition: Home (Routine Discharge)
Discharge Diagnosis/Procedures: Rapid atrial fibrillation, congestive heart failure, hypomagnesemia
Condition: Good
Diet: Low Sodium
Activity: As tolerated
Driving Restrictions: As prior to admission
Specialty Instructions: Weigh Daily- Call MD for wt gain/loss 3 lbs overnight/5 lbs in 1 week
Referrals:
Reyes Ocampo DO [Family Provider, Family Practice] - in one week
Sejal Elliott MD [Active, Cardiology] - 09/21/25 9:00 am
Referral Note: Ablation Consultation
Prescriptions:
New
dapagliflozin propanediol 10 mg Tablet
10 mg PO DAILY Qty: 30 0RF
metoprolol succinate 50 mg Tablet Extended Release 24 Hr
50 mg PO BID Qty: 60 0RF
Continued
omega-3 acid ethyl esters [Lovaza] 1 GM capsule
2 g PO BID
atorvastatin 40 mg Tablet
40 mg PO HS
losartan 50 mg Tablet
50 mg PO DAILY
potassium 99 mg Tablet
99 mg PO DAILY
tadalafil 5 mg Tablet
5 mg PO DAILY
propranolol 20 mg tablet
20 mg PO Q6H PRN (Reason: palpitation) Qty: 60 0RF
Eliquis 5 mg Tablet
5 mg PO BID
Mounjaro 7.5 mg/0.5 mL Pen Injector
7.5 mg SC TH
multivitamin Tablet
1 tab PO DAILY
pantoprazole 40 mg tablet,delayed release (DR/EC)
40 mg PO QPM
Changed
magnesium oxide 400 mg magnesium Tablet
800 mg PO DAILY Qty: 60 0RF
Discontinued
metoprolol succinate 50 mg Tablet Extended Release 24 Hr
50 mg PO DAILY Qty: 30 0RF
Discharge Orders:
Discharge Patient (As Directed); Ordered 08/24/25
Ordered By: Abelino Jose
Care Plan Goals
Care Plan Goals:
Problem: Readiness for enhanced knowledge related to diagnosis and treatment plan
Goal: Understand your diagnosis and treatment plan needs, including medications if applicable.
Instructions: Know your diagnosis, underlying causes and treatment plan options, including medications if applicable. Consult with your health care team to learn about your diagnosis and treatment plan, including medications if applicable.
Discharge Date and Time
Discharge Date/Time: 08/24/25 14:24
Print Language: [email or web address]
== END 2025-08-24 14:24 | disposition home or self-care (01) | DRG 291 ==
LOC: IVU 10:22
PROVIDERS: Emergency Medicine; ADMITTING PHYSICIAN Family Medicine; CONSULT PHYSICIAN Student in an Organized Health Care Education/Training Program; EMERGENCY PHYSICIAN Emergency Medicine; FAMILY PHYSICIAN Family Medicine
DX: I11.0 Hypertensive heart disease with heart failure (principal); I50.33 Acute on chronic diastolic (congestive) heart failure; I48.0 Paroxysmal atrial fibrillation; E78.00 Pure hypercholesterolemia, unspecified; E66.09 Other obesity due to excess calories; Z68.34 Body mass index [BMI] 34.0-34.9, adult; E78.1 Pure hyperglyceridemia; E83.42 Hypomagnesemia; G47.33 Obstructive sleep apnea (adult) (pediatric); K21.9 Gastro-esophageal reflux disease without esophagitis; K64.9 Unspecified hemorrhoids; Z79.01 Long term (current) use of anticoagulants; Z79.899 Other long term (current) drug therapy; Z87.891 Personal history of nicotine dependence
CPT/HCPCS: 71046; 80048; 80053; 83036; 83735; 83880; 84436; 84439; 84443; 84484; 85025; 87070; 93005; 93306; 96365; 96366; 96375; 99285

== ENCOUNTER 2025-10-03 05:55 | Day surgery (SDC) | payer OTHER, SELFPAY ==
[2025-09-26 08:43] VITALS: BMI 33.5
[2025-09-26 08:59] LABS: Hematocrit 39.0 % (39.0-52.0); Hemoglobin 13.3 g/dL (13.0-18.0); Mean Corp Hgb Conc. 34.1 g/dL (33.0-37.0); Mean Corpuscular Volume 85.9 fL (80.0-94.0); Nucleated Red Blood Cells % 0 % (-); Platelet Count 192 10^3/uL (130-400); Red Cell Dist. Width 12.0 % (11.5-14.5)
[2025-09-26 09:38] LABS: ALT (SGPT) 57 U/L (0-50); AST (SGOT) 32 U/L (17-59); Albumin 4.5 g/dl (3.5-5.0); Alkaline Phosphatase 51 U/L (38-126); Blood Urea Nitrogen 7 mg/dl (9-20); Calcium 9.4 mg/dl (8.4-10.2); Carbon Dioxide 26 mmol/L (22-30); Chloride 105 mmol/L (98-107); Estimated Creatinine Clearance > 125 ml/min; Glucose 92 mg/dl (70-99); Potassium 3.4 mmol/L (3.5-5.1); Sodium 139 mmol/L (135-145); Total Protein 6.6 g/dl (6.3-8.2); eGFR > 60.00
[2025-10-03] VITALS (14 sets, daily range): BP systolic 100–119; BP diastolic 70–82; BMI 33.2
[2025-10-03] MEDS: NSS 500 IV (07:16)
[2025-10-03 08:43] LABS: ACT-LR - POC 287 Seconds (116-155)
[2025-10-03 09:05] LABS: ACT-LR - POC 302 Seconds (116-155)
[2025-10-03 09:32] LABS: ACT-LR - POC 310 Seconds (116-155)
[2025-10-03 09:45] LABS: ACT-LR - POC 294 Seconds (116-155)
[2025-10-03 09:47] LABS: ACT-LR - POC 316 Seconds (116-155)
--- NOTE | 2025-10-03 10:19 | ITS.CL.ABL ---
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
Ablation
Procedure Report:
AFIB ablation:
Mr. Wolf is a very pleasant 55 yr old gentleman with medical history significant for symptomatic paroxysmal atrial fibrillation is here in the EP lab for atrial fibrillation ablation
Date of Procedure:
10/03/2025
Indications:
Symptomatic paroxysmal atrial fibrillation
Pre-Operative Diagnosis:
Paroxysmal atrial fibrillation
Post-Operative Diagnosis:
Paroxysmal atrial fibrillation
Procedure Performed:
Atrial fibrillation ablation with wide area circumferential ablation (WACA) approach for pulmonary vein isolation
Performing Physician:
Sejal Elliott MD
Assistants:
EP staff
Anesthesia:
See anesthesia records
Detailed Description of the Procedure:
Written informed consent was obtained from the patient after a full explanation of the risks and benefits of the procedure including the risks of sedation and anesthesia.
The patient was brought to the electrophysiology laboratory in stable condition in fasting state. Continuous electrocardiographic and hemodynamic monitoring was initiated.
The initial rhythm was sinus rhythm.
The procedure site was meticulously prepared with surgical scrub and allowed to dry with no pooling. Sterile draping was applied to cover the procedure site. The image intensifier was draped with sterile bag and positioned over the patient. After
infusion of local anesthetic, vascular access was obtained under ultrasound guidance and sheaths were placed over guide wire as detailed below.
The images of the ultrasound of the femoral vessels were stored in patient chart.
Sheath and Catheter Placement:
In the right femoral vein, a 10-Gambian sheath was placed under ultrasound guidance for use during the ablation procedure. In the right femoral vein, another 9-Fr sheath was placed for use during intracardiac echo procedure.
The sheaths were upgraded as needed during the case. Intracardiac catheters were positioned using direct fluoroscopic guidance. ICE catheter was placed in RA. The following catheters / sheaths were placed
Sheaths:
Agilis sheath in right femoral vein upgraded from 8Fr in right femoral vein
9Fr in right femoral vein
Catheters:
The Affera Sphere 9 catheter -bidirectional D/F - at locations of HRA, LA and LV.
ICE catheter -AccuNav - at locations of RA, SVC, and RV.
Heparin was initiated after the access was obtained.
Intracardiac ECHO:
An 8-Gambian AcuNav intracardiac ECHO (ICE) probe was advanced through the 9-Gambian sheath in the left femoral vein into the right atrium under fluoroscopic and ICE ultrasound image guidance and a baseline ECHO study was performed. The left atrial
size was mildly dilated. There was trace tricuspid regurgitation. The aortic valve was grossly normal. There was normal left ventricular size and function. There is a trace pericardial effusion. The DALTON has baseline normal velocities. The pulmonary
had good flow identified.
During the procedure, ICE was used for monitoring of complications, guidance of trans-septal puncture, monitor the catheter position and tracking ablation lesions. No change in the pericardial space noted throughout the procedure.
Trans-septal Puncture:
Heparin was initiated and infused to maintain appropriate ACT. A J-tipped guidewire was advanced through into the superior vena cava under fluoroscopic and ICE guidance. The Agilis sheath with BRK needle was advanced into the superior vena cava over
the guidewire. The apparatus was withdrawn until it was in contact with the fossa ovalis. The position was adjusted based on fluoroscopy and ultrasound images from ICE. Under fluoroscopic, hemodynamic and ICE ultrasound guidance, left atrium was
cannulated by advancing the needle. Once atrial septum was cannulated, the needle was pulled back and the guide wire was advanced through the needle into the left atrium. The guide wire was advanced into the left superior pulmonary vein. Both the
sheath and the dilator was advanced into the left atrium. The dilator with the needle was withdrawn. Blood was aspirated from the Agilis sheath and arterial blood confirmed. The sheath was flushed. Saline injection noted into the left atrium on ICE.
The waveform of the LA pressure was recorded. The mapping catheter was advanced in the Agilis sheath into the left pulmonary vein.
3D Electroanatomic Mapping:
Using the Sphere 9 Affera catheter advanced through Agilis sheath into the left atrium, an electroanatomic map (EAM) of the left atrium was created using [employer]� mapping system with Prism-1 software. The map was used for localization of catheter
position and tacking of ablation lesions. The EAM of the left atrium showed a total of 5 PVs with a two left and three right sided pulmonary veins with all electrically connected to the body the LA. It showed no significant scar on the posterior
wall of the LA. The LA was dilated in size.
Following the EAM, preparation were made for ablation.
Ablation:
Ablation # 2: Pulmonary vein Isolation:
Glycopyrrolate 0.2 mg was given prior to the placement of ablation.
Pulsed field ablation was performed using an open irrigation, bidirectional, contact sensing, dual energy ablation catheter (MyDocTimea sphere -9) by completing the circumferential lesions around the left and right pulmonary veins achieving pulmonary
vein isolation.
Confirmation of the PVI and bidirectional block:
Following achievement of entrance block at the pulmonary veins, pacing from the Sphere 9 affera catheter in each of the four veins at 20 milliamps for 4 milliseconds showed entrance and exit block.
The LA was mapped with The [employer]� mapping system with Prism-1 software in sinus rhythm confirming the line of block at the ablation lesions lines.
EP study:
Sinus Node Function: The sinus node functions are within acceptable normal range.
Atrioventricular Radha Function: Normal AV conduction noted with normal AV radha conduction time.
Procedure End
ICE study was done again that showed no epicardial accumulation. No complications noted.
Following the completion of the EP study, catheters were removed. Protamine 40 mg was given at the end of the procedure and ACT was checked repeatedly. The sheaths were removed and hemostasis achieved with Figure of 8 suture and manual compression
after acceptable ACT is achieved.
Left atrial Pressure:
Pre-Procedure: Mean LA pressure was 16mmHg
Post-Procedure: Mean LA pressure was 18mmHg
Post-Procedure: Mean LA pressure was 8mmHg
Estimated Blood loss:
<10 cc
Specimens Removed:
None.
Implants / Devices:
None
Urine output:
None
Packs / Drains/ Tubes:
None
Instrument / Sponge Count Correct:
Yes
Complications of the Procedure:
None
Condition of Patient at Time of Transfer:
Hemodynamically stable with no neurological or vascular compromise.
Summary:
Successful atrial fibrillation ablation with circumferential bidirectional line of block at pulmonary vein antra (Pulmonary vein isolation)
Figures from the Procedure:
Figure 1: The electroanatomic mapping (EAM) of the left atrium with bipolar voltage (purple indicates normal electrical activity with red as no myocardial muscle electric activity indicating a line of block or scar.
[2025-10-03] MEDS: TORADOL 15 MG IV (12:32)
--- NOTE | 2025-10-03 14:38 | W.PN.UPDATE ---
Update Note
Progress Note Update
Pt seen post PFA. RIght groin without ht/bleeding, oob ambulating. Post EKG NSR w/1st deg AVB as before, no acute changes. Mild chest discomfort post procedure not relieved with acetaminophen, good relief from toradol 15mg IV x1. Resume eliquis
tonight at usual time. Followup at [facility] in 2 weeks as scheduled. Home today if groin site/tele remain stable.
== END 2025-10-03 14:35 | disposition home or self-care (01) ==
LOC: CATH 05:55
PROVIDERS: ATTENDING PHYSICIAN Internal Medicine Cardiovascular Disease; FAMILY PHYSICIAN Family Medicine; OTHER PHYSICIAN Physician Assistant
DX: I48.0 Paroxysmal atrial fibrillation (principal); I44.0 Atrioventricular block, first degree; I45.10 Unspecified right bundle-branch block; Z88.0 Allergy status to penicillin; Z88.8 Allergy status to other drugs, medicaments and biological substances; I11.0 Hypertensive heart disease with heart failure; I50.32 Chronic diastolic (congestive) heart failure; Z79.85 Long-term (current) use of injectable non-insulin antidiabetic drugs; Z79.01 Long term (current) use of anticoagulants; Z79.899 Other long term (current) drug therapy
CPT/HCPCS: C1733; C1769; C1894; C1766; C1892; C1759; 36415; 80053; 85025; 85347; 86850; 86900; 86901; 93005; 93656; 93657

== ENCOUNTER 2025-10-19 11:34 | Emergency (ER) | payer OTHER, SELFPAY ==
[2025-10-19 11:41] VITALS: BP 115/67
--- NOTE | 2025-10-19 13:31 | ED.GENMED ---
History of Present Illness
General
Chief Complaint: Musculo-Skeletal Complaint
Source: patient
Exam Limitations: none
Time Seen by Provider: 10/19/25 13:03
Nursing documentation reviewed up to this point in time: agreed with
History of Present Illness
History of Present Illness:
Patient is a 55-year-old male presents to the ER complaining of right shoulder pain. He denies any injury. He reports this does feel similar however to when he needed his rotator cuff replaced in the past. He is on anticoagulation for A-fib and
therefore currently take Tylenol. Tylenol is not relieving his symptoms. He does have an appointment with Dr. Ponce tomorrow because of increased pain presented to the ER. He denies any redness fever chills.
Past History
Past History
ED Past Medical History: Arrthythmia (Atrial fib), HTN, Hypercholesterolemia and Other (IBS)
ED Past Surgical History: Other (Left wrist surgery and Right shoulder )
Social History
Tobacco: Former smoker
Alcohol: Occasional
Drug: None
Personal:
Living: with family
Employment: Employed
Family History
Family History: Other (Not much contact with his father history not known)
Phy Exam
General Physical Exam
General Presentation: no apparent distress
General age: appears stated age
General Skin: warm and dry
General Habitus: normal
General Mental: alert
General Hydration: appears well hydrated
Neurological Exam
Neurological Exam: alert and oriented x3
Musculoskeletal Exam
Musculoskeletal Exam: other (Normal inspection to right shoulder no obvious swelling strong distal pulses normal distal sensation ; pain with ROM )
Skin Exam
Skin Exam: normal color and warm/dry
Psychiatric Exam
Psychiatric Exam: normal mood/affect
Course
Orders/Labs/Results
Orders:
Orders
10/19/25 12:27
Shoulder, Right, Trauma [CR Shoulder, Trauma - Right] Urgent
Comment:
Reason For Exam: pain
10/19/25 13:40
Sling Right-Treatment ONCE
Oxycodone [Roxicodone] 5 mg PO NOW STA
Vital Signs
Initial and Last Documented VS:
Initial Vital Signs
Temp Pulse Resp BP Pulse Ox
98.7 F 103 16 115/67 98
10/19/25 11:41 10/19/25 11:41 10/19/25 11:41 10/19/25 11:41 10/19/25 11:41
Last Documented Vital Signs
Temp Pulse Resp BP Pulse Ox
98.7 F 103 16 115/67 98
10/19/25 11:41 10/19/25 11:41 10/19/25 11:41 10/19/25 11:41 10/19/25 13:33
MDM/Problems Addressed
Differential Diagnosis Includes:
not limited to: shoulder pain , arthritis rotator cuff injury (less likely as no injury )
MDM/Problems Addressed:
Symptoms are possible rotator cuff injury/muscle sprain strain, arthritis. Patient without any evidence of infection no fevers no redness on exam no obvious swelling. He is following up with orthopedics tomorrow but presented because of increased
pain. He is not a candidate for NSAIDs as he is on anticoagulation for A-fib. Patient was given a dose of oxycodone here will DC with oxycodone with instructions alternate with plain Tylenol.
Chronic conditions affecting care:
afib on eliquis
*Radiology
Radiology exam reviewed: radiology read reviewed
*Pulse Oximetry
SaO2: 98
Oxygen Mode of Delivery: Room air
Patient hypoxic: no
*Critical Care Note
Total Time (30-74mins, 75-104mins- exclusive of procedures): Not Applicable
ED Attending Note
-
Portions of this chart may have been created with voice recognition software.� Occasional wrong word or��sound alike� substitutions may have occurred due to the inherent limitations of voice recognition software.
Discharge Plan
Departure
Patient Disposition: Home (Routine Discharge)
Date of Disposition: 10/19/25
Time of Disposition: 13:47
Patient with high blood pressure during this ER visit?: No
Condition: Fair
Covid-19: Not Applicable
Discharge Problem:
Acute shoulder pain
Instructions: How to Use a Shoulder Sling, Using Cold for Pain, Shoulder pain - ED (DC)
Prescriptions:
New
oxycodone 5 mg tablet
5 mg PO Q6H PRN (Reason: Pain) Qty: 10 0RF
No Action
omega-3 acid ethyl esters [Lovaza] 1 GM capsule
2 g PO BID
atorvastatin 40 mg Tablet
40 mg PO QPM
losartan 50 mg Tablet
50 mg PO QPM
tadalafil 5 mg Tablet
5 mg PO DAILY
propranolol 20 mg tablet
20 mg PO Q6H PRN (Reason: palpitation) Qty: 60 0RF
Eliquis 5 mg Tablet
5 mg PO BID
Mounjaro 7.5 mg/0.5 mL Pen Injector
7.5 mg SC TH
multivitamin Tablet
1 tab PO DAILY
pantoprazole 40 mg tablet,delayed release (DR/EC)
40 mg PO QPM
dapagliflozin propanediol 10 mg Tablet
10 mg PO DAILY Qty: 30 0RF
colchicine 0.6 mg Tablet
0.6 mg PO DAILY
potassium gluconate 595 mg (99 mg) Tablet
595 mg PO BID
metoprolol succinate 50 mg tablet extended release 24 hr
50 mg PO DAILY
magnesium oxide 400 mg magnesium tablet
400 mg PO BID
Referrals:
Omega Ponce MD [Active, Orthopedics]
Reyes Ocampo DO [Family Provider, Family Practice]
Activity Restrictions/Additional Instructions:
As discussed you may take Tylenol for pain however a narcotic pain medication was sent to your pharmacy take as directed. No driving or drinking alcohol while taking this medication. This medication is a narcotic and will cause constipation.
Please take [id number] laxative while taking this medication. Wear sling for support until seen and eval by orthopedics tomorrow. Ice over the affected area for the next 24 to 48 hours 20 minutes at a time several times a day return if any
worsening of symptoms of increased pain redness fevers or any further concerns. Follow-up with orthopedics scheduled tomorrow.
Interventions
Interventions:
*Risk Screen - Suicide Last Done: 10/19/25 11:41
*General Assessment Last Done: 10/19/25 11:41
*Neglect/Abuse Screening Last Done: 10/19/25 11:41
*ED- Fall Risk Assessment Last Done: 10/19/25 12:21
*ED COVID-19 Vaccine History Last Done: 10/19/25 12:21
*ED Influenza Vaccine History Last Done: 10/19/25 12:21
ED-Musculoskeletal Assessment Last Done: 10/19/25 12:21
Discharge Date and Time
Print Language: BOLIVIAN
[2025-10-19] MEDS: ROXICODONE 5 MG PO (13:49)
== END 2025-10-19 14:05 | disposition home or self-care (01) ==
LOC: EMR 11:34
PROVIDERS: EMERGENCY PHYSICIAN Emergency Medicine; FAMILY PHYSICIAN Family Medicine
DX: M25.511 Pain in right shoulder (principal); E78.00 Pure hypercholesterolemia, unspecified; I10 Essential (primary) hypertension; I48.91 Unspecified atrial fibrillation; Z79.01 Long term (current) use of anticoagulants; Z87.891 Personal history of nicotine dependence
CPT/HCPCS: 99283; 73030